=== PATIENT | female | born 1930 | race Caucasian/White ===

== ENCOUNTER 2016-12-14 10:30 | Inpatient (IN) | payer MEDICARE ==
[2016-12-14] MEDS ORDERED: SODIUM CHLORIDE 0.9% 1,000 ML IV STA (13:17)
[2016-12-14] MEDS ORDERED: SODIUM CHLORIDE 0.9% 500 ML IV STA ×2 (13:17→14:45)
[2016-12-14 14:08] LABS: Basophils # (A) 0.1 k/uL (0-0.2); Basophils % (A) 1 %; CH 27.3; CHCM 33.3; Eosinophils % (A) 0 %; HDW 2.96; Luc % (Auto) 3; Lymphocytes # (A) 1.2 k/uL (1.0-4.8); Lymphocytes % (A) 18 %; MCH 26.2 pg (25.0-35.0); MCHC 31.8 g/dL (31.0-37.0); MCV 82.3 fL (80.0-100.0); Mean Platelet Volume 7.2; Monocytes # (A) 0.4 k/uL (0-1.0); Monocytes % (A) 7 %; Neutrophils # (A) 4.6 k/uL (1.3-7.7); Neutrophils % (A) 72 %; RBC 4.98 m/uL (3.80-5.40); RDW 14.8 % (11.5-15.5); WBC 6.4 k/uL (3.8-10.6); WBC (Perox) 6.37
[2016-12-14 14:18] LABS: INR 1.1 (<1.1); Partial Thromboplastin Time 26.7 sec (22.0-30.0); Prothrombin Time 10.8 sec (9.0-12.0)
[2016-12-14 14:29] LABS: Calcium 9.6 mg/dL (8.4-10.2); Magnesium 2.4 mg/dL (1.6-2.3); Phosphorous 4.9 mg/dL (2.5-4.5); Total Bilirubin 0.4 mg/dL (0.2-1.3); Total Protein 7.9 g/dL (6.3-8.2)
[2016-12-14 14:33] LABS: Creatine Kinase <20 U/L (30-135)
--- NOTE | 2016-12-14 14:35 | ED ---
General Adult HPI - General Chief complaint: Recheck/Abnormal Lab/Rx Stated complaint: abn labs Time Seen by Provider: 12/14/16 13:04 Source: patient Mode of arrival: ambulatory Limitations: no limitations - History of Present Illness Initial comments: This 86-year-old white female presents with a complaint of not feeling well. This apparently has been going on for approximately one week. She's had significant decrease food and fluid intake. She's been weak to the point that she cannot any further ambulate but was able to ambulate previously. She's had increased sleep. She barely has a long history of urinary tract infections. She had a urine and blood work done this past and results were relayed to daughter today and it appears that she has a urinary tract infection with results showing E. coli. Her potassium was also elevated at 5.9. The daughter denies any known fever. The patient lives in a semi-independent living facility. She apparently has people checking on her regularly. She has advanced dementia and is unable to give any relevant history herself. All history is obtained per daughter. No other complaints or modifying factors. Daughter relates that she's had multiple previous similar incidents related to urinary infections. - Related Data Home Medications Medication Instructions Recorded Confirmed Citalopram Hydrobromide [CeleXA] 20 mg PO DAILY@0700 09/09/15 12/14/16 Diltiazem HCl [Diltiazem 24Hr ER] 120 mg PO DAILY@0700 03/04/16 12/14/16 L.acidoph,Paracasei, B.lactis 1 tab PO DAILY@0700 04/23/16 12/14/16 [Probiotic] Donepezil [Aricept] 5 mg PO DAILY@0700 06/04/16 12/14/16 Ezetimibe [Zetia] 10 mg PO DAILY@0700 06/04/16 12/14/16 Aspirin EC [Ecotrin Low Dose] 81 mg PO Q48H 12/14/16 12/14/16 Potassium Chloride [K-Tab ER] 5 meq PO SUTUTHFR 12/14/16 12/14/16 Simvastatin [Zocor] 10 mg PO DAILY 12/14/16 12/14/16 Allergies Allergy/AdvReac Type Severity Reaction Status Date / Time ciprofloxacin [From Cipro] Allergy Nausea & Verified 12/14/16 13:29 Vomiting & Diarrhea ciprofloxacin HCl Allergy Nausea & Verified 12/14/16 13:29 [From Cipro] Vomiting & Diarrhea mold Allergy Unknown Verified 12/14/16 13:29 nitrofurantoin Allergy Nausea & Verified 12/14/16 13:29 [From Macrobid] Vomiting & Diarrhea nitrofurantoin Allergy Nausea & Verified 12/14/16 13:29 macrocrystalline Vomiting & [From Macrobid] Diarrhea Penicillins Allergy Rash/Hives, Verified 12/14/16 13:29 diarrhea sulfamethoxazole Allergy Nausea & Verified 12/14/16 13:29 [From Bactrim] Vomiting & Diarrhea tamsulosin HCl [From Flomax] Allergy dizziness,v Verified 12/14/16 13:29 omiting trimethoprim [From Bactrim] Allergy Nausea & Verified 12/14/16 13:29 Vomiting & Diarrhea chocolate flavor AdvReac Diarrhea Verified 12/14/16 13:29 midazolam HCl [From Versed] AdvReac paranoid,combative,severe Verified 13:29 confusion,hallucinations Review of Systems ROS Statement: Those systems with pertinent positive or pertinent negative responses have been documented in the HPI. ROS Other: All systems not noted in ROS Statement are negative. Past Medical History Past Medical History: Atrial Fibrillation, Asthma, Dementia, Eye Disorder, GERD/ Reflux, Hyperlipidemia, Hypertension, Renal Disease Additional Past Medical History / Comment(s): URINARY BLEEDING SINCE URETER STENT PLACEMENT-bates catheter which pt pulled out ,DAUGHTER STATES, nephrolithiasis, hydronephrosis, renal insufficiency, bladder cancer 30 yrs ago with removal and BCG instilled, urinary retention, "ABLE TO SIGN OWN CONSENTS BUT HAS TROUBLE WITH STM LOSS", Hx of ARRYTHMIA but not recently, DAUGHTER STATED PT HAS CHRONIC DIARRHEA-"NOT NEW FOR PT", falls, bilateral glaucoma, hx of sepsis History of Any Multi-Drug Resistant Organisms: None Reported Additional Past Surgical History / Comment(s): LOOP MONITOR LT CHEST,RT URETER STENT PLACEMENT q 6mos x 30 yrs-last placement 04-14-16 [facility] ,RT NEPHROLITHOTOMY,CANCEROUS BLADDER TUMOR REMOVED with BCG instilled, 04-24-16 cystoscopy Additional Past Anesthesia/Blood Transfusion Reaction / Comment(s): INCREASED CONFUSION WITH ANESTHESIA AND WITH VERSED INCREASED PARANOID,HALLUCINATIONS, COMBATIVE,DTR HAS HX PONV. NO HX BLOOD TRANSFUSION Type of Cardiac Device: Loop Device Placement Date:: 2011? Past Psychological History: No Psychological Hx Reported Additional Psychological History / Comment(s): PT LIVES AT ON LICENSE OF [facility], HAS [facility] CARE. DAUGHTER FILLS PTS MED CONTAINERS .PT USES A WHEELED WALKER.HX FALLS.ABLE TO FEED SELF BUT NEEDS SOMEONE TO SIT WITH HER AND ENCOURAGE HER TO EAT. Will pull out bates catheter if able to reach. Smoking Status: Never smoker Past Alcohol Use History: None Reported Past Drug Use History: None Reported - Past Family History Mother Family Medical History: Cancer Additional Family Medical History / Comment(s): PANCREATIC CA Father Family Medical History: CVA/TIA Additional Family Medical History / Comment(s): MULT CVA'S General Exam - General Exam Comments Initial Comments: GENERAL: The patient is well nourished and well hydrated. VITAL SIGNS: Heart rate, blood pressure, respiratory rate reviewed as recorded in nurse's notes. EYES: Pupils are round and reactive. Extraocular movements are intact. No conjunctival / lid redness or swelling. ENT: No external evidence of injury, swelling, or ecchymosis. Airway is patent. Throat is clear. NECK: Nontender. No swelling or evidence of injury. No subcutaneous emphysema. Trachea is midline. No thyroid mass. HEART: Regular rate and rhythm. Good peripheral pulses. LUNGS/CHEST: Breath sounds clear and equal bilaterally. No rales, rhonchi, or wheezes. No ecchymosis, subcutaneous emphysema, or tenderness. ABDOMEN: Abdomen soft without tenderness. No palpable masses or organomegaly. No peritoneal signs. No abdominal wall swelling or ecchymosis. EXTREMITIES: No extremity tenderness. Normal muscle tone and function. No thoracolumbar tenderness. NEUROLOGIC: Sensation is grossly intact. Cranial nerve exam reveals face is symmetrical, tongue is midline, speech is clear. SKIN: No abrasions or ecchymosis is noted. No induration or masses noted. PSYCHIATRIC: Alert and conversive, documented. Limitations: no limitations Course Vital Signs 12/14/16 12/14/16 11:23 14:16 Temperature 97.6 F 98.1 F Pulse Rate 86 72 Respiratory 16 16 Rate Blood Pressure 123/60 110/68 O2 Sat by Pulse 98 97 Oximetry Medical Decision Making - Medical Decision Making The patient was seen and examined. All diagnostics were reviewed. The EKG was done and shows a normal sinus rhythm at a rate of 77. There is no acute ST-T wave changes identified. There is a left axis deviation. The AK interval is 198, QRS duration is 104, and QTC intervals 416. An IV is started and she is hydrated. IV Rocephin also was given. The potassium is significantly elevated at 6.7, creatinine is elevated at 3.09, the urine is elevated at 61, glucose is elevated 152, and the CO2 is low at 15. She does have evidence of a urinary tract infection. Is felt as though she became dehydrated due to lack of eating and drinking and this likely caused her renal failure as well as hyperkalemia. It is felt as though she would require further treatment for the hyperkalemia and is given Kayexalate, IV bicarbonate, IV insulin, and IV glucose. It is felt as though she would require admission to the hospital for continued treatment. The case is discussed with Dr. Patel and he is agreeable to admission. Patient and family are updated and are agreeable. - Lab Data Result diagrams: 12/14/16 13:15 12/14/16 13:15 Lab Results 12/14/16 12/14/16 12/14/16 Range/Units 13:15 13:15 13:15 WBC 6.4 (3.8-10.6) k/uL RBC 4.98 (3.80-5.40) m/uL Hgb 13.0 (11.4-16.0) gm/dL Hct 41.0 (34.0-46.0) % MCV 82.3 (80.0-100.0) fL MCH 26.2 (25.0-35.0) pg MCHC 31.8 (31.0-37.0) g/dL RDW 14.8 (11.5-15.5) % Plt Count 440 (150-450) k/uL Neutrophils % 72 % Lymphocytes % 18 % Monocytes % 7 % Eosinophils % 0 % Basophils % 1 % Neutrophils # 4.6 (1.3-7.7) k/uL Lymphocytes # 1.2 (1.0-4.8) k/uL Monocytes # 0.4 (0-1.0) k/uL Eosinophils # 0.0 (0-0.7) k/uL Basophils # 0.1 (0-0.2) k/uL PT (9.0-12.0) sec INR (<1.1) APTT (22.0-30.0) sec Sodium 135 L (137-145) mmol/L Potassium 6.7 H* (3.5-5.1) mmol/L Chloride 103 (98-107) mmol/L Carbon Dioxide 15 L (22-30) mmol/L Anion Gap 17 mmol/L BUN 61 H (7-17) mg/dL Creatinine 3.09 H (0.52-1.04) mg/dL Est GFR (MDRD) Af Amer 17 (>60 ml/min/1.73 sqM) Est GFR (MDRD) Non-Af 14 (>60 ml/min/1.73 sqM) Glucose 152 H (74-99) mg/dL Plasma Lactic Acid Jaxson (0.7-2.0) mmol/L Calcium 9.6 (8.4-10.2) mg/dL Phosphorus 4.9 H (2.5-4.5) mg/dL Magnesium 2.4 H (1.6-2.3) mg/dL Total Bilirubin 0.4 (0.2-1.3) mg/dL AST 13 L (14-36) U/L ALT 18 (9-52) U/L Alkaline Phosphatase 157 H (38-126) U/L Total Creatine Kinase <20 L (30-135) U/L CK-MB (CK-2) 0.5 (0.0-2.4) ng/mL CK-MB (CK-2) Rel Index 0.0 Troponin I <0.012 (0.000-0.034) ng/mL Total Protein 7.9 (6.3-8.2) g/dL Albumin 3.9 (3.5-5.0) g/dL TSH 0.765 (0.465-4.680) mIU/L Urine Color Urine Appearance (Clear) Urine pH (5.0-8.0) Ur Specific Leroy (1.001-1.035) Urine Protein (Negative) Urine Glucose (UA) (Negative) Urine Ketones (Negative) Urine Blood (Negative) Urine Nitrate (Negative) Urine Bilirubin (Negative) Urine Urobilinogen (<2.0) mg/dL Ur Leukocyte Esterase (Negative) Urine RBC (0-5) /hpf Urine WBC (0-5) /hpf Urine Bacteria (None) /hpf 12/14/16 12/14/16 12/14/16 Range/Units 13:15 13:15 13:45 WBC (3.8-10.6) k/uL RBC (3.80-5.40) m/uL Hgb (11.4-16.0) gm/dL Hct (34.0-46.0) % MCV (80.0-100.0) fL MCH (25.0-35.0) pg MCHC (31.0-37.0) g/dL RDW (11.5-15.5) % Plt Count (150-450) k/uL Neutrophils % % Lymphocytes % % Monocytes % % Eosinophils % % Basophils % % Neutrophils # (1.3-7.7) k/uL Lymphocytes # (1.0-4.8) k/uL Monocytes # (0-1.0) k/uL Eosinophils # (0-0.7) k/uL Basophils # (0-0.2) k/uL PT 10.8 (9.0-12.0) sec INR 1.1 (<1.1) APTT 26.7 (22.0-30.0) sec Sodium (137-145) mmol/L Potassium (3.5-5.1) mmol/L Chloride (98-107) mmol/L Carbon Dioxide (22-30) mmol/L Anion Gap mmol/L BUN (7-17) mg/dL Creatinine (0.52-1.04) mg/dL Est GFR (MDRD) Af Amer (>60 ml/min/1.73 sqM) Est GFR (MDRD) Non-Af (>60 ml/min/1.73 sqM) Glucose (74-99) mg/dL Plasma Lactic Acid Jaxson 1.7 (0.7-2.0) mmol/L Calcium (8.4-10.2) mg/dL Phosphorus (2.5-4.5) mg/dL Magnesium (1.6-2.3) mg/dL Total Bilirubin (0.2-1.3) mg/dL AST (14-36) U/L ALT (9-52) U/L Alkaline Phosphatase (38-126) U/L Total Creatine Kinase (30-135) U/L CK-MB (CK-2) (0.0-2.4) ng/mL CK-MB (CK-2) Rel Index Troponin I (0.000-0.034) ng/mL Total Protein (6.3-8.2) g/dL Albumin (3.5-5.0) g/dL TSH (0.465-4.680) mIU/L Urine Color Yellow Urine Appearance Turbid H (Clear) Urine pH 6.0 (5.0-8.0) Ur Specific Leroy 1.011 (1.001-1.035) Urine Protein 2+ H (Negative) Urine Glucose (UA) Negative (Negative) Urine Ketones Negative (Negative) Urine Blood Moderate H (Negative) Urine Nitrate Negative (Negative) Urine Bilirubin Negative (Negative) Urine Urobilinogen <2.0 (<2.0) mg/dL Ur Leukocyte Esterase Large H (Negative) Urine RBC (0-5) /hpf Urine WBC (0-5) /hpf Urine Bacteria Few H (None) /hpf Disposition Clinical Impression: UTI (urinary tract infection), Acute kidney injury, Hyperkalemia, Hyperglycemia , Dehydration, Dementia Disposition: ADMITTED IP TO THIS [facility] Condition: Fair Time of Disposition: 15:13 Decision Date: 12/14/16 Decision Time: 15:13
[2016-12-14 14:37] LABS: Appearance,Urine Turbid (Clear); Bilirubin,Urine Negative (Negative); Glucose,Urine (UA) Negative (Negative); Ketones,Urine Negative (Negative); Leukocyte Esterase,Urine Large (Negative); Nitrite,Urine Negative (Negative); Protein,Urine 2+ (Negative); UA Billing (MACRO vs. MICRO) MICRO; Urobilinogen,Urine <2.0 mg/dL (<2.0)
[2016-12-14 14:38] LABS: Specific Gravity,Urine 1.011 (1.001-1.035)
[2016-12-14 14:41] LABS: Potassium 6.7 mmol/L (3.5-5.1)
[2016-12-14 14:44] LABS: Creatine Kinase MB 0.5 ng/mL (0.0-2.4); Troponin I <0.012 ng/mL (0.000-0.034)
[2016-12-14] MEDS ORDERED: SODIUM POLYSTYRENE SULFONATE 15 GM/60 ML BOTTLE PO ONE (14:46)
[2016-12-14] MEDS ORDERED: DEXTROSE 50%-WATER 50 ML SYRINGE IVP ONE (14:46)
[2016-12-14] MEDS ORDERED: INSULIN REGULAR 100 UNIT/ML VIAL IV ONE (14:46)
[2016-12-14] MEDS ORDERED: SODIUM BICARB 8.4% 50 ML SYR (1 MEQ/ML) IV ONE (14:46)
[2016-12-14 14:51] LABS: Bacteria,Urine Few /hpf
[2016-12-14] MEDS ORDERED: NALOXONE 0.4 MG/ML 1 ML VIAL IV PRN (15:16)
[2016-12-14] MEDS ORDERED: ONDANSETRON 4 MG/2 ML VIAL IVP PRN (15:16)
[2016-12-14] MEDS ORDERED: ACETAMINOPHEN TAB 325 MG TAB PO PRN (15:16)
[2016-12-14] MEDS: MELATONIN 3 MG TABLET PO SCH (20:32)
[2016-12-14] MEDS: HEPARIN SODIUM,PORCINE 5,000 UNIT/ML 1 ML VIAL SQ SCH (20:32)
[2016-12-14 20:50] LABS: Glucose,Whole Blood 103 mg/dL (75-99)
[2016-12-15 06:20] LABS: Basophils % (A) 0 %; CHCM 32.7; Eosinophils % (A) 0 %; HCT 30.8 % (34.0-46.0); Luc # (Auto) 0.23; Luc % (Auto) 4; Lymphocytes # (A) 1.4 k/uL (1.0-4.8); Lymphocytes % (A) 25 %; MCH 26.9 pg (25.0-35.0); MCHC 32.5 g/dL (31.0-37.0); MCV 82.7 fL (80.0-100.0); Mean Platelet Volume 6.6; Monocytes # (A) 0.3 k/uL (0-1.0); Monocytes % (A) 6 %; Neutrophils # (A) 3.6 k/uL (1.3-7.7); Neutrophils % (A) 64 %; RBC 3.73 m/uL (3.80-5.40); RDW 14.9 % (11.5-15.5); WBC 5.6 k/uL (3.8-10.6)
[2016-12-15 06:32] LABS: Potassium 3.7 mmol/L (3.5-5.1)
[2016-12-15] MEDS: DILTIAZEM CD 120 MG CAP.ER.24H PO SCH (06:54)
[2016-12-15] MEDS: DONEPEZIL 5 MG TAB PO SCH (06:54)
[2016-12-15] MEDS: EZETIMIBE 10 MG TAB PO SCH (06:54)
[2016-12-15] MEDS: CITALOPRAM HYDROBROMIDE 20 MG TAB PO SCH (06:54)
[2016-12-15] MEDS: LACTOBACILLUS ACIDOPH & BULGAR 1 EACH PACKET PO SCH (06:54)
--- NOTE | 2016-12-15 08:28 | HP ---
DATE OF ADMISSION: CHIEF COMPLAINT: Not feeling well. HISTORY OF PRESENT ILLNESS: This 86-year-old woman with a past medical history of multiple medical problems including atrial fibrillation, asthma, dementia, history of hypertension, hyperlipidemia, history of urinary retention being followed by Dr. Xie is living [facility]. The patient is noted to have significant diminished intake p.o. food and fluid intake. The patient had problems over the weekend. Because of increasing concerns, the patient was taken to [facility] and admitted for further evaluation and treatment. Patient was noted to have UTI recently E. Coli. The potassium is also elevated at 5.9 and previously on admission, the creatinine was 3.09 and patient is dehydrated. Potassium is elevated to 6.7. The patient received regimen and the repeat potassium was 4.4. Patient is being closely monitored in selective telemetry unit at this time. The patient is noncommunicative and unable to give current history. Most of the history is taken from my discussion with staff and review of the chart and as well as discussion with the ER. Physician. PAST MEDICAL HISTORY: History of dementia, history of atrial fibrillation, asthma, history of hypertension, hyperlipidemia, history of renal disease, history of urinary bleeding and ureteral stent placement. Medications prior to admission include home medications: 1. Zocor 10 mg p.o. daily. 2. K-Tab 5 mEq p.o. daily. 3. Probiotic 1 tablet p.o. daily. 4. Lactobacillus, Probiotic, 1 tablet p.o. daily. 5. Zetia 10 mg p.o. daily. 6. Aricept 5 mg p.o. daily. 7. Diltiazem 24, 120 mg p.o. daily. 8. Celexa 20 mg p.o. daily. 9. Ecotrin 81 mg q.48 hours. Allergies are CIPROFLOXACIN, MOLD, NITROFURANTOIN, PENICILLIN, SULFAMETHOXAZOLE, FLOMAX, BACTRIM, CHOCOLATE FAVOR, MIDAZOLAM. FAMILY HISTORY, SOCIAL HISTORY, REVIEW OF SYSTEMS: Could not be taken because of change in mental status and no history of smoking per chart. PHYSICAL EXAM: Patient is conscious, confused. Pulse 75, blood pressure 119/61, respirations 18, temperature 98.1, pulse ox 99% on room air. HEENT: Conjunctivae normal. Oral mucosa is dry. NECK: No jugular venous distention. No carotid bruit. The veins are collapsed. CARDIOVASCULAR: S1 and S2, muffled. No S3, no S4. RESPIRATORY: Breath sounds diminished at the bases. A few scattered rhonchi. No crackles. ABDOMEN: Soft, nontender. No mass palpable. LEGS: No edema, no swelling. NERVOUS SYSTEM: Higher function as mentioned earlier. Moves all 4 limbs. Mild diffuse weakness. LYMPHATICS: No lymphadenopathy of neck, axillae or groin. SKIN: No ulcer, rashes or bleeding. JOINTS: No active deforming arthropathy. LABS: CBC within normal limits. Sodium 135, potassium 6.7. Creatinine is 3.09. Magnesium is 2.4. AST, ALT noted. UA noted. ASSESSMENT: 1. Urinary tract infection with possible sepsis, present on admission. 2. Change in mental status, metabolic encephalopathy acute on chronic. 3. Acute renal failure, possible prerenal with acute tubular necrosis. 4. Hyperkalemia secondary to acute renal failure. 5. Hyponatremia. 6. Body mass index 18.7 indicating moderate to severe protein calorie malnutrition. 7. History of dementia. 8. History of atrial fibrillation. 9. History of asthma. 10. History of hypertension. 11. Hyperlipidemia. 12. History of renal disease. 13. History of ureteral bleeding from ureteric stent placement. 14. History of nephrolithiasis. 15. History of hydronephrosis. 16. History of bladder cancer. 17. History of urinary retention. 18. History of chronic diarrhea. 19. History of bilateral glaucoma. 20. Gait dysfunction. 21. NO CODE, NO CPR, NO VENT. RECOMMENDATIONS AND DISCUSSION: This 86-year-old woman who presented with multiple complex medical issues, will monitor the patient closely. Continue the current medications. Continue symptomatic treatment. I would recommend to continue with IV antibiotics. Cautious IV hydration. Repeat labs. Dr. Summers will be consulted. PT, OT evaluation. Land Developer to evaluate for home situation. Otherwise, supplement vitamin C. Orders for further details. Encourage p.o. food and fluids and increase ambulation. Repeat electrolytes. The prognosis is guarded because of multiple complex medical issues. Further recommendations to follow. A copy needs to be forwarded to Dr. iXe who is the primary physician. [facility]
[2016-12-15] MEDS ORDERED: ENOXAPARIN 40 MG/0.4 ML SYRINGE SQ SCH (09:00)
[2016-12-15] MEDS: HEPARIN SODIUM,PORCINE 5,000 UNIT/ML 1 ML VIAL SQ SCH ×2 (09:10→19:46)
[2016-12-15] MEDS: ATORVASTATIN 10 MG TAB PO SCH (09:10)
[2016-12-15] MEDS: PANTOPRAZOLE 40 MG/10 ML VIAL IV SCH (09:34)
--- NOTE | 2016-12-15 10:06 | P.CNPUL ---
History of Present Illness Consult date: 12/15/16 Reason for consult: other Chief complaint: Abnormal labs History of present illness: This an 86-year-old female who presents to the emergency department complaining of "" not feeling well. She apparently not been feeling well for about a week prior to admission and had significant decrease in both food and fluid intake. She is so weak she cannot ambulate. Apparently spending much more time in bed. She apparently has a history of urinary tract infections and apparently recently had a urinalysis which suggested E. coli bladder infection. She was also found to be hyperkalemic. There was no fever or chills. No nausea vomiting or diarrhea. The patient does have advanced dementia and not able get much of a history. Most of the history is obtained from the ER alfonso was history and information was obtained from the patient's daughter. Medical history is positive for atrial fibrillation asthma dementia GERD hyperlipidemia hypertension chronic kidney disease kidney stones as well as as well as a host of other major medical problems. Please see the medical history and surgical history is provided by the ER physician. The patient appears to not have any pulmonary issues at this time. I suspect I was consulted because at one time the patient was possibly thought to be going to the intensive care unit. Review of Systems ROS unobtainable: due to mental status Past Medical History Past Medical History: Atrial Fibrillation, Asthma, Dementia, Eye Disorder, Hyperlipidemia, Hypertension, Renal Disease Additional Past Medical History / Comment(s): URINARY BLEEDING SINCE URETER STENT PLACEMENT, nephrolithiasis, hydronephrosis, renal insufficiency, bladder cancer 30 yrs ago with removal and BCG instilled, urinary retention, DAUGHTER STATED PT HAS CHRONIC DIARRHEA-"NOT NEW FOR PT", falls, bilateral glaucoma, hx of sepsis History of Any Multi-Drug Resistant Organisms: None Reported Additional Past Surgical History / Comment(s): LOOP MONITOR LT CHEST,RT URETER STENT PLACEMENT q 6mos x 30 yrs-last placement 04-14-16,RT NEPHROLITHOTOMY, CANCEROUS BLADDER TUMOR REMOVED with BCG instilled Additional Past Anesthesia/Blood Transfusion Reaction / Comment(s): INCREASED CONFUSION WITH ANESTHESIA. INCREASED PARANOID,HALLUCINATIONS,COMBATIVE, NO HX BLOOD TRANSFUSION Type of Cardiac Device: Loop Device Placement Date:: 2011? Past Psychological History: No Psychological Hx Reported Additional Psychological History / Comment(s): PT LIVES AT [facility], HAS HOME CARE. DAUGHTER FILLS PTS MED CONTAINERS .PT USES A WHEELED WALKER.HX FALLS.ABLE TO FEED SELF BUT NEEDS SOMEONE TO SIT WITH HER AND ENCOURAGE HER TO EAT. Smoking Status: Never smoker Past Alcohol Use History: None Reported Past Drug Use History: None Reported - Past Family History Mother Family Medical History: Cancer Additional Family Medical History / Comment(s): PANCREATIC CA Father Family Medical History: CVA/TIA Additional Family Medical History / Comment(s): MULT CVA'S Medications and Allergies Home Medications Medication Instructions Recorded Confirmed Type Citalopram Hydrobromide [CeleXA] 20 mg PO DAILY@0700 09/09/15 12/14/16 History Diltiazem HCl [Diltiazem 24Hr ER] 120 mg PO DAILY@0700 03/04/16 12/14/16 History L.acidoph,Paracasei, B.lactis 1 tab PO DAILY@0700 04/23/16 12/14/16 History [Probiotic] Donepezil [Aricept] 5 mg PO DAILY@0706/04/16 12/14/16 History Ezetimibe [Zetia] 10 mg PO DAILY@0700 06/04/16 12/14/16 History Aspirin EC [Ecotrin Low Dose] 81 mg PO Q48H 12/14/16 12/14/16 History Potassium Chloride [K-Tab ER] 5 meq PO SUTUTHFR 12/14/16 12/14/16 History Simvastatin [Zocor] 10 mg PO DAILY 12/14/16 12/14/16 History Allergies Allergy/AdvReac Type Severity Reaction Status Date / Time ciprofloxacin [From Cipro] Allergy Nausea & Verified 12/14/16 13:29 Vomiting & Diarrhea ciprofloxacin HCl Allergy Nausea & Verified 12/14/16 13:29 [From Cipro] Vomiting & Diarrhea mold Allergy Unknown Verified 12/14/16 13:29 nitrofurantoin Allergy Nausea & Verified 12/14/16 13:29 [From Macrobid] Vomiting & Diarrhea nitrofurantoin Allergy Nausea & Verified 12/14/16 13:29 macrocrystalline Vomiting & [From Macrobid] Diarrhea Penicillins Allergy Rash/Hives, Verified 12/14/16 13:29 diarrhea sulfamethoxazole Allergy Nausea & Verified 12/14/16 13:29 [From Bactrim] Vomiting & Diarrhea tamsulosin HCl [From Flomax] Allergy dizziness,v Verified 12/14/16 13:29 omiting trimethoprim [From Bactrim] Allergy Nausea & Verified 12/14/16 13:29 Vomiting & Diarrhea chocolate flavor AdvReac Diarrhea Verified 12/14/16 13:29 midazolam HCl [From Versed] AdvReac paranoid,combative,severe Verified 13:29 confusion,hallucinations Physical Exam Osteopathic Statement: *. No significant issues noted on an osteopathic structural exam other than those noted in the History and Physical/Consult. Vitals: Vital Signs Temp Pulse Pulse Pulse Resp BP BP 12/15/16 08:32 67 14 12/15/16 08:00 97.2 F L 67 14 133/72 12/15/16 04:00 97.4 F L 73 16 119/64 12/15/16 00:00 98.8 F 70 16 127/57 12/14/16 20:00 98.5 F 73 16 123/56 12/14/16 17:45 75 16 119/61 12/14/16 17:31 68 16 120/64 12/14/16 16:36 98.1 F 72 16 117/62 Pulse Ox 12/15/16 08:32 12/15/16 08:00 98 12/15/16 04:00 97 12/15/16 00:00 98 12/14/16 20:00 98 12/14/16 17:45 99 12/14/16 17:31 98 12/14/16 16:36 99 Intake and Output 12/14/16 12/15/16 12/15/16 22:59 06:59 14:59 Intake Total 360 Balance 360 Intake: Oral 360 Other: Voiding Method Diaper Diaper Diaper # Voids 0 Weight 51 kg 54 kg No acute distress, oriented to person only. HEENT examination is grossly unremarkable. Mixed membranes are moist. Supple. Full range of motion. No neck vein distention. No adenopathy or thyromegaly. Cardiovascular examination reveals regular rhythm rate. Heart sounds are distant. Lungs are relatively clear breath sounds equal. Abdomen soft. Extremities are intact. Results - Laboratory Findings CBC and BMP: 12/15/16 06:00 12/15/16 06:00 PT/INR, D-dimer PT 10.8 sec (9.0-12.0) 12/14/16 13:15 INR 1.1 (<1.1) 12/14/16 13:15 Abnormal lab findings: Abnormal Labs 12/14/16 12/15/16 12/15/16 20:49 06:00 06:00 RBC 3.73 L Hgb 10.0 L D Hct 30.8 L Chloride 113 H Carbon Dioxide 16 L BUN 48 H Creatinine 2.20 H Glucose 111 H POC Glucose (mg/dL) 103 H Calcium 8.0 L - Diagnostic Findings Chest x-ray: image reviewed Assessment and Plan (1) Acute kidney injury Status: Acute (2) Dementia Status: Acute (3) Hyperkalemia Status: Acute (4) UTI (urinary tract infection) Status: Acute (5) Altered mental status Status: Acute (6) UTI (urinary tract infection) Status: Acute Plan: Plan The patient currently has no active pulmonary issues. We'll see as needed. No additional recommendations are made at this time. Current treatment as appropriate. Time with Patient: Greater than 30
[2016-12-15] MEDS: THIAMINE 100 MG TAB PO SCH (11:12)
[2016-12-15] MEDS: MULTIVITAMINS, THERA 1 EACH TAB PO SCH (11:12)
[2016-12-15] MEDS: FOLIC ACID 1 MG TAB PO SCH (11:12)
--- NOTE | 2016-12-15 19:37 | PN ---
DATE OF SERVICE: 12/15/2016 This 86-year-old woman was admitted with acute renal failure, also has UTI with sepsis. Patient had change in mental status. Patient had diminished oral intake. No fever. No cough. On exam, patient is conscious, confused. Pulse 67, blood pressure 133/72, respirations 14, temperature 97.4, pulse ox 90% on room air. HEENT: Conjunctivae normal. NECK: No jugular venous distention. CARDIOVASCULAR: S1 and S2, muffled. RESPIRATORY: Breath sounds diminished at the bases. Scattered rhonchi and crackles. ABDOMEN: Soft, nontender. LEGS: No edema, no swelling. NERVOUS SYSTEM: No focal deficits. LABS: Hemoglobin 10, sodium 134, potassium 3.7, creatinine is 2.20. UA noted. Cultures are negative. ASSESSMENT: 1. Urinary tract infection with possible sepsis, present on admission. 2. Change in mental status, metabolic encephalopathy, acute on chronic. 3. Acute renal failure, possible prerenal, with acute tubular necrosis. 4. Hyperkalemia secondary to acute renal failure. 5. Hyponatremia. 6. Body mass index 18.7 indicating moderate to severe protein calorie malnutrition. 7. History of dementia. 8. History of atrial fibrillations. 9. History of asthma. 10. History of hypertension. 11. History of hyperlipidemia. 12. History of renal disease. 13. History of ureteral bleeding from ureteric stent placement. 14. History of nephrolithiasis. 15. History of hydronephrosis. 16. History of bladder cancer. 17. History of urinary retention. 18. History of chronic diarrhea. 19. History of bilateral glaucoma. 20. Gait dysfunction. 21. NO CODE, NO CPR, NO VENT. RECOMMENDATIONS AND DISCUSSION: This 86-year-old woman who presented with multiple complex medical issues, we will monitor the patient closely. Continue the current medications. Continue with antibiotics. Continue with IV fluids. Repeat labs. Guarded prognosis because of multiple complex medical issues. Further recommendations to follow.
[2016-12-15] MEDS: MELATONIN 3 MG TABLET PO SCH (19:46)
[2016-12-16] MEDS: ASPIRIN 81 MG CHEW PO SCH (06:13)
[2016-12-16] MEDS: CITALOPRAM HYDROBROMIDE 20 MG TAB PO SCH (06:13)
[2016-12-16] MEDS: EZETIMIBE 10 MG TAB PO SCH (06:14)
[2016-12-16] MEDS: DONEPEZIL 5 MG TAB PO SCH (06:14)
[2016-12-16] MEDS: DILTIAZEM CD 120 MG CAP.ER.24H PO SCH (06:14)
[2016-12-16] MEDS: LACTOBACILLUS ACIDOPH & BULGAR 1 EACH PACKET PO SCH (06:14)
[2016-12-16 06:27] LABS: Basophils % (A) 0 %; CH 26.9; CHCM 32.2; Eosinophils # (A) 0.1 k/uL (0-0.7); Eosinophils % (A) 1 %; HCT 31.7 % (34.0-46.0); HDW 2.97; HGB 10.1 gm/dL (11.4-16.0); Hypochromasia Slight; Luc % (Auto) 4; Lymphocytes # (A) 1.1 k/uL (1.0-4.8); Lymphocytes % (A) 19 %; MCH 26.8 pg (25.0-35.0); MCV 83.9 fL (80.0-100.0); Mean Platelet Volume 6.3; Monocytes # (A) 0.4 k/uL (0-1.0); Monocytes % (A) 6 %; Neutrophils # (A) 4.1 k/uL (1.3-7.7); Neutrophils % (A) 70 %; RBC 3.78 m/uL (3.80-5.40); RDW 14.8 % (11.5-15.5); WBC 5.8 k/uL (3.8-10.6); WBC (Perox) 6.01
[2016-12-16 06:39] LABS: Potassium 3.4 mmol/L (3.5-5.1)
[2016-12-16] MEDS: PANTOPRAZOLE 40 MG/10 ML VIAL IV SCH (07:57)
[2016-12-16] MEDS: HEPARIN SODIUM,PORCINE 5,000 UNIT/ML 1 ML VIAL SQ SCH ×2 (07:57→20:55)
[2016-12-16] MEDS: ATORVASTATIN 10 MG TAB PO SCH (07:57)
[2016-12-16] MEDS: FOLIC ACID 1 MG TAB PO SCH (12:06)
[2016-12-16] MEDS: MULTIVITAMINS, THERA 1 EACH TAB PO SCH (12:06)
[2016-12-16] MEDS: THIAMINE 100 MG TAB PO SCH (12:06)
[2016-12-16 13:19] VITALS: BMI 20.1
[2016-12-16] MEDS: SODIUM BICARBONATE TAB 650 MG TAB PO SCH ×2 (17:35→20:55)
--- NOTE | 2016-12-16 18:10 | P.PN ---
Subjective 86-year-old female with the advanced dementia currently a resident of [facility] comes in the hospital with change in mental status. Patient was noted to have an acute kidney injury which is attribute it to be prerenal in etiology. Patient apparently had poor intake take prior to admission. Patient was given IV hydration there was some suspicion for urinary tract infection as patient has a left-sided stent placed for previous hydronephrosis done by Dr. Oreilly in the past. Patient was started on IV antibiotics Patient is significant improvement is able to answer questions patient's daughter is at bedside. States that she is back to her baseline. No other new overnight events are reported. Objective - Vital Signs Vital signs: Vital Signs Temp 97.1 F L 12/16/16 16:00 Pulse 69 12/16/16 16:00 Resp 16 12/16/16 16:00 BP 114/59 12/16/16 16:00 Pulse Ox 97 12/16/16 16:00 Intake & Output 12/15/16 12/16/16 12/16/16 18:59 06:59 18:59 Intake Total 540 50 715 Balance 540 50 715 Weight 55 kg 55 kg Intake: IV 50 cefTRIAXone 1,000 mg In 50 Sodium Chloride 0.9% 50 ml @ 100 mls/hr IVPB Q24H [facility] Rx#:[id number] Oral 540 715 Other: Voiding Method Diaper Diaper Diaper # Voids 1 1 1 # Bowel Movements 0 1 - Exam In appearance in no distress answers questions appropriately Lungs currently clear to auscultation Heart regular rate and rhythm S1-S2 heard no murmurs appreciated Abdomen is soft nontender organomegaly no suprapubic tenderness noted Neurologically moves all 4 extremities Lower extremity is no edema appreciated - Labs CBC & Chem 7: 12/16/16 05:44 12/16/16 05:44 Labs: Abnormal Lab Results - Last 24 Hours (Table) 12/16/16 12/16/16 Range/Units 05:44 05:44 RBC 3.78 L (3.80-5.40) m/uL Hgb 10.1 L (11.4-16.0) gm/dL Hct 31.7 L (34.0-46.0) % Potassium 3.4 L (3.5-5.1) mmol/L Chloride 109 H (98-107) mmol/L Carbon Dioxide 15 L (22-30) mmol/L BUN 36 H (7-17) mg/dL Creatinine 1.86 H (0.52-1.04) mg/dL Calcium 8.0 L (8.4-10.2) mg/dL Microbiology - Last 24 Hours (Table) 12/14/16 19:29 Blood Culture - Preliminary Blood No Growth after 24 hours Assessment and Plan Plan: #1 acute metabolic encephalopathy #2 acute kidney injury secondary to prerenal in etiology likely secondary from poor oral intake #3 non-anion gap metabolic acidosis secondary to #2 #4 dementia #5 urinary tract infection #6 history of hypertension #7 left-sided ureteral stent #8 sinus dysrhythmia Plan Patient be started on sodium bicarb 650 mg 3 times a day. Patient renal function is improving continue ongoing care for another 24 hours. Will likely be able to discharge the patient back to her facility tomorrow. Will have physical therapy work with the patient tomorrow in a.m.
[2016-12-16] MEDS: MELATONIN 3 MG TABLET PO SCH (20:55)
[2016-12-17] MEDS: CITALOPRAM HYDROBROMIDE 20 MG TAB PO SCH (06:31)
[2016-12-17] MEDS: EZETIMIBE 10 MG TAB PO SCH (06:31)
[2016-12-17] MEDS: LACTOBACILLUS ACIDOPH & BULGAR 1 EACH PACKET PO SCH (06:31)
[2016-12-17] MEDS: DILTIAZEM CD 120 MG CAP.ER.24H PO SCH (06:32)
[2016-12-17] MEDS: DONEPEZIL 5 MG TAB PO SCH (06:32)
[2016-12-17] MEDS: PANTOPRAZOLE 40 MG/10 ML VIAL IV SCH (08:12)
[2016-12-17] MEDS: HEPARIN SODIUM,PORCINE 5,000 UNIT/ML 1 ML VIAL SQ SCH ×2 (08:12→20:15)
[2016-12-17] MEDS: ATORVASTATIN 10 MG TAB PO SCH (08:13)
[2016-12-17] MEDS: SODIUM BICARBONATE TAB 650 MG TAB PO SCH ×3 (08:13→22:14)
[2016-12-17] MEDS ORDERED: DILTIAZEM CD 120 MG CAP.ER.24H PO STA (08:23)
[2016-12-17] MEDS ORDERED: DILTIAZEM 5 MG/ML 5 ML VIAL IVP STA (08:23)
[2016-12-17 09:39] LABS: Basophils % (A) 0 %; CH 26.1; Eosinophils # (A) 0.1 k/uL (0-0.7); Eosinophils % (A) 1 %; HCT 33.2 % (34.0-46.0); HDW 2.95; HGB 9.9 gm/dL (11.4-16.0); Hypochromasia Marked; Luc # (Auto) 0.22; Luc % (Auto) 4; Lymphocytes # (A) 1.4 k/uL (1.0-4.8); Lymphocytes % (A) 24 %; MCHC 29.9 g/dL (31.0-37.0); Mean Platelet Volume 7.9; Monocytes # (A) 0.5 k/uL (0-1.0); Monocytes % (A) 9 %; Neutrophils # (A) 3.7 k/uL (1.3-7.7); Neutrophils % (A) 62 %; RBC 3.68 m/uL (3.80-5.40); RDW 14.7 % (11.5-15.5); WBC 5.9 k/uL (3.8-10.6); WBC (Perox) 6.27
[2016-12-17 09:59] LABS: Manual Review Performed
[2016-12-17 10:17] LABS: Calcium 8.3 mg/dL (8.4-10.2); Potassium 3.5 mmol/L (3.5-5.1); Total Bilirubin 0.3 mg/dL (0.2-1.3); Total Protein 5.8 g/dL (6.3-8.2)
[2016-12-17] MEDS: THIAMINE 100 MG TAB PO SCH (11:29)
[2016-12-17] MEDS: FOLIC ACID 1 MG TAB PO SCH (11:29)
[2016-12-17] MEDS: MULTIVITAMINS, THERA 1 EACH TAB PO SCH (11:29)
[2016-12-17] MEDS ORDERED: DILTIAZEM ORAL 30 MG TAB PO STA (11:59)
[2016-12-17] MEDS ORDERED: SODIUM CHLORIDE 0.9% 1,000 ML IV ONE (12:35)
[2016-12-17] MEDS: SODIUM CHLORIDE 0.9% 1,000 ML IV SCH ×3 (12:35→18:28)
[2016-12-17 15:36] LABS: MCV 90.2 fL (80.0-100.0)
--- NOTE | 2016-12-17 17:46 | P.PN ---
Subjective 86-year-old female with the advanced dementia currently a resident of [facility] comes in the hospital with change in mental status. Patient was noted to have an acute kidney injury which is attribute it to be prerenal in etiology. Patient apparently had poor intake take prior to admission. Patient was given IV hydration there was some suspicion for urinary tract infection as patient has a left-sided stent placed for previous hydronephrosis done by Dr. Oreilly in the past. Patient was started on IV antibiotics Patient is significant improvement is able to answer questions patient's daughter is at bedside. States that she is back to her baseline. No other new overnight events are reported. 12/17/16 Denies having any new complaints. Pt was having episodes of a fib with rvr. Objective - Vital Signs Vital signs: Vital Signs Temp 97.2 F L 12/17/16 12:00 Pulse 90 12/17/16 12:00 Resp 16 12/17/16 12:00 BP 101/55 12/17/16 12:00 Pulse Ox 96 12/17/16 12:00 Intake & Output 12/16/16 12/17/16 12/17/16 18:59 06:59 18:59 Intake Total 715 240 Output Total 150 Balance 715 90 Weight 55 kg 55 kg 55 kg Intake: Oral 715 240 Output: Urine 150 Other: Voiding Method Diaper Diaper Diaper # Voids 1 1 # Bowel Movements 1 0 1 - Exam Gen appearance in no distress answers questions appropriately Lungs currently clear to auscultation Heart Irregularly irregular. S1-S2 heard no murmurs appreciated Abdomen is soft nontender organomegaly no suprapubic tenderness noted Neurologically moves all 4 extremities Lower extremity is no edema appreciated - Labs CBC & Chem 7: 12/17/16 06:02 12/17/16 09:21 Labs: Abnormal Lab Results - Last 24 Hours (Table) 12/17/16 12/17/16 Range/Units 06:02 09:21 RBC 3.68 L (3.80-5.40) m/uL Hgb 9.9 L (11.4-16.0) gm/dL Hct 33.2 L (34.0-46.0) % MCHC 29.9 L (31.0-37.0) g/dL Carbon Dioxide 16 L (22-30) mmol/L BUN 32 H (7-17) mg/dL Creatinine 1.81 H (0.52-1.04) mg/dL Glucose 172 H (74-99) mg/dL Calcium 8.3 L (8.4-10.2) mg/dL AST 11 L (14-36) U/L Total Protein 5.8 L (6.3-8.2) g/dL Albumin 2.5 L (3.5-5.0) g/dL Microbiology - Last 24 Hours (Table) 12/14/16 19:29 Blood Culture - Preliminary Blood No Growth after 48 hours Assessment and Plan Plan: #1 acute metabolic encephalopathy #2 acute kidney injury secondary to prerenal in etiology likely secondary from poor oral intake #3 non-anion gap metabolic acidosis secondary to #2 #4 dementia #5 urinary tract infection #6 history of hypertension #7 left-sided ureteral stent #8 sinus dysrhythmia Plan Continue sodium bicar. repeat electrolytes. Pt will be given an additional 1l of ivf. Discussed with the family, that these episodes of dehydration will recur, as pt' s dementia is likely advancing and her appetite has decreased. Continue telemetry, if controlled, will dc back to [place] [facility]. renal function improving.
[2016-12-17] MEDS: MELATONIN 3 MG TABLET PO SCH (20:14)
[2016-12-17] MEDS ORDERED: Magnesium Replacement Protocol 1 EACH MISC MISCELLANE PRN (20:49)
[2016-12-17] MEDS: MAGNESIUM SULFATE-D5W PMX 1 GM in DEXTROSE/WATER 1 100ML.BAG IVPB SCH (22:08)
[2016-12-18] MEDS: MAGNESIUM SULFATE-D5W PMX 1 GM in DEXTROSE/WATER 1 100ML.BAG IVPB SCH (00:15)
[2016-12-18] MEDS: SODIUM CHLORIDE 0.9% 1,000 ML IV SCH ×3 (04:50→12:49)
[2016-12-18] MEDS: LACTOBACILLUS ACIDOPH & BULGAR 1 EACH PACKET PO SCH (06:19)
[2016-12-18] MEDS: EZETIMIBE 10 MG TAB PO SCH (06:19)
[2016-12-18] MEDS: DONEPEZIL 5 MG TAB PO SCH (06:19)
[2016-12-18] MEDS: ASPIRIN 81 MG CHEW PO SCH (06:20)
[2016-12-18] MEDS: CITALOPRAM HYDROBROMIDE 20 MG TAB PO SCH (06:20)
[2016-12-18] MEDS: DILTIAZEM CD 120 MG CAP.ER.24H PO SCH (06:20)
[2016-12-18 07:20] LABS: Magnesium 2.3 mg/dL (1.6-2.3); Potassium 3.7 mmol/L (3.5-5.1); Total Bilirubin 0.3 mg/dL (0.2-1.3)
[2016-12-18] MEDS ORDERED: PANTOPRAZOLE 40 MG TABLET PO SCH (07:30)
[2016-12-18 07:57] LABS: CHCM 28.3; HCT 35.2 % (34.0-46.0); HDW 2.96; Hypochromasia Marked; MCH 26.3 pg (25.0-35.0); MCHC 28.5 g/dL (31.0-37.0); MCV 92.3 fL (80.0-100.0); Mean Platelet Volume 7.1; RBC 3.81 m/uL (3.80-5.40); RDW 14.8 % (11.5-15.5); WBC 7.2 k/uL (3.8-10.6); WBC (Perox) 7.46
[2016-12-18 08:25] LABS: Add Differential Manual Differential
[2016-12-18 08:39] LABS: Nucleated Red Blood Cells 0 /100 WBC (0-0); Total Cells Counted 100
[2016-12-18] MEDS: ATORVASTATIN 10 MG TAB PO SCH (09:12)
[2016-12-18] MEDS: SODIUM BICARBONATE TAB 650 MG TAB PO SCH (09:12)
[2016-12-18] MEDS: HEPARIN SODIUM,PORCINE 5,000 UNIT/ML 1 ML VIAL SQ SCH (09:12)
[2016-12-18 10:58] VITALS: RESP 20
[2016-12-18] MEDS: MULTIVITAMINS, THERA 1 EACH TAB PO SCH (12:49)
[2016-12-18] MEDS: THIAMINE 100 MG TAB PO SCH (12:49)
[2016-12-18] MEDS: FOLIC ACID 1 MG TAB PO SCH (12:49)
[2016-12-18 13:41] VITALS: BP 109/58; PULSE 67; TEMP 98.6
[2016-12-18] MEDS ORDERED: SODIUM BICARB 8.4% 50 ML SYR (1 MEQ/ML) IV STA (16:03)
--- NOTE | 2016-12-18 16:57 | P.DS ---
Providers Date of admission: 12/14/16 15:16 Attending physician: Gigi Patel Consults: 12/14/16 17:29 Consult Physician Routine Consulting Provider: Shine Summers Consult Reason/Comments: knew the pt Do you want consulting provider notified?: Yes Primary care physician: Jack Xie [facility] Course: 86-year-old female with the advanced dementia currently a resident of [facility] comes in the hospital with change in mental status. Patient was noted to have an acute kidney injury which is attribute it to be prerenal in etiology. Patient apparently had poor intake take prior to admission. Patient was given IV hydration there was some suspicion for urinary tract infection as patient has a left-sided stent placed for previous hydronephrosis done by Dr. Oreilly in the past. Patient was started on IV antibiotics Patient is significant improvement is able to answer questions patient's daughter is at bedside. States that she is back to her baseline. No other new overnight events are reported. 12/17/16 Denies having any new complaints. Pt was having episodes of a fib with rvr. On the day of discharge Patient was slightly drowsy however this is kind of her baseline. Patient apparently was not able to tolerate too much oral intake. Again I reiterated and discussed with the family was at bedside that approaching hospice as her oral intake has significantly decreased will likely be the best outcome in her' s case as patient will likely get dehydrated again due to poor intake and will get readmitted to the hospital. - Exam Gen appearance in no distress answers questions appropriately Lungs currently clear to auscultation Heart Irregularly irregular. S1-S2 heard no murmurs appreciated Abdomen is soft nontender organomegaly no suprapubic tenderness noted Neurologically moves all 4 extremities Lower extremity is no edema appreciated Assessment and Plan Plan: #1 acute metabolic encephalopathy #2 acute kidney injury secondary to prerenal in etiology likely secondary from poor oral intake #3 non-anion gap metabolic acidosis secondary to #2 #4 dementia #5 urinary tract infection #6 history of hypertension #7 left-sided ureteral stent #8 sinus dysrhythmia Plan Repeat lites in one week. Patient's heart rate is well-controlled. I did discussed that due to the patient's poor oral intake she might get readmitted to the hospital for dehydration. As her course of dementia is getting worse [ pts prognosis is extremely poor patient may benefit from being considered for hospice. referral to hospice will be given to the patient , patient's family should meet with hospice during the week and a decision should be made thereafter. Continue sodium bicarb 650 mg 3 times a day. Patient will be given an amp of bicarb. Repeat labs next week. Patient Condition at Discharge: Fair Plan - Discharge Summary New Discharge Prescriptions: Cefuroxime [Ceftin] 250 mg PO BID #10 tablet Melatonin 3 mg PO HS #30 tablet Sodium Bicarbonate Tab 650 mg PO TID 10 Days Discharge Medication List Citalopram Hydrobromide [CeleXA] 20 mg PO DAILY@0700 09/09/15 [History] Diltiazem HCl [Diltiazem 24Hr ER] 120 mg PO DAILY@0700 03/04/16 [History] L.acidoph,Paracasei, B.lactis [Probiotic] 1 tab PO DAILY@0700 04/23/16 [History] Donepezil [Aricept] 5 mg PO DAILY@0700 06/04/16 [History] Aspirin EC [Ecotrin Low Dose] 81 mg PO Q48H 12/14/16 [History] Cefuroxime [Ceftin] 250 mg PO BID #10 tablet 12/18/16 [Rx] Melatonin 3 mg PO HS #30 tablet 12/18/16 [Rx] Sodium Bicarbonate Tab 650 mg PO TID 10 Days 12/18/16 [Rx] Follow up Appointment(s)/Referral(s): Jack Xie MD [Primary Care Provider] - 12/22/16 1:30 pm Ambulatory/Diagnostic Orders: Comprehensive Metabolic Panel [LAB.AMB] Time Frame: 1 Week, Location: Determined By Patient Comprehensive Metabolic Panel [LAB.AMB] Time Frame: 2 Weeks, Location: Determined By Patient Discharge Disposition: HOME WITH HOME HEALTH SERVICES
== END 2016-12-18 17:07 | disposition home health service (06) | DRG 682 ==
LOC: EC 10:30 → 6SEL 15:16
PROVIDERS: ADMIT Hospitalist; ATTEND Hospitalist
DX: N17.9 Acute kidney failure, unspecified (principal); G93.41 Metabolic encephalopathy; E43 Unspecified severe protein-calorie malnutrition; E87.2 Acidosis; N39.0 Urinary tract infection, site not specified; E87.1 Hypo-osmolality and hyponatremia; Z68.1 Body mass index [BMI] 19.9 or less, adult; I48.91 Unspecified atrial fibrillation; E87.5 Hyperkalemia; Z66 Do not resuscitate; E86.0 Dehydration; F03.90 Unspecified dementia, unspecified severity, without behavioral disturbance, psychotic disturbance, mood disturbance, and anxiety; I12.9 Hypertensive chronic kidney disease with stage 1 through stage 4 chronic kidney disease, or unspecified chronic kidney disease; B96.20 Unspecified Escherichia coli [E. coli] as the cause of diseases classified elsewhere; E78.5 Hyperlipidemia, unspecified; H40.9 Unspecified glaucoma; J45.909 Unspecified asthma, uncomplicated; K21.9 Gastro-esophageal reflux disease without esophagitis; R26.9 Unspecified abnormalities of gait and mobility; Z85.51 Personal history of malignant neoplasm of bladder; Z87.442 Personal history of urinary calculi; Z87.440 Personal history of urinary (tract) infections; Z88.0 Allergy status to penicillin; Z88.1 Allergy status to other antibiotic agents; Z88.2 Allergy status to sulfonamides; Z88.8 Allergy status to other drugs, medicaments and biological substances; N18.9 Chronic kidney disease, unspecified; Z79.82 Long term (current) use of aspirin; Z79.899 Other long term (current) drug therapy
CPT/HCPCS: 36415; 80048; 80053; 81001; 82550; 82553; 83605; 83735; 84100; 84132; 84443; 84484; 85025; 85610; 85730; 87040; 87086; 93005; 96361; 96365; 96375; 99285

== ENCOUNTER 2018-02-03 12:18 | Inpatient (IN) | payer MEDICARE ==
--- NOTE | 2018-02-03 12:55 | ED ---
General Adult HPI - General Chief complaint: Weakness Stated complaint: lethargy/poss UTI Time Seen by Provider: 02/03/18 12:20 Source: EMS, RN notes reviewed, old records reviewed Mode of arrival: EMS Limitations: altered mental status - History of Present Illness Initial comments: This is an 87-year-old female to the ER for evaluation. Patient presents for evaluation regards to weakness. Altered mental state decreased appetite lack of activity. Patient's been treated with outpatient urinary tract infection is still having bowel smelling purulent urine. No fevers. Mild abdominal pain. Family states patient is a poor strain history is obtained from patient's daughter. Patient denies any complaints of patient has dementia - Related Data Home Medications Medication Instructions Recorded Confirmed Citalopram Hydrobromide [CeleXA] 20 mg PO DAILY@0700 09/09/15 02/03/18 Diltiazem HCl [Diltiazem 24Hr ER] 120 mg PO DAILY@0700 03/04/16 02/03/18 Donepezil [Aricept] 5 mg PO DAILY@0700 06/04/16 02/03/18 Aspirin EC [Ecotrin Low Dose] 81 mg PO MOWEFR 12/14/16 02/03/18 Loperamide [Imodium] 2 mg PO SUTUTHSA 02/03/18 02/03/18 Allergies Allergy/AdvReac Type Severity Reaction Status Date / Time ciprofloxacin [From Cipro] Allergy Nausea & Verified 02/03/18 12:53 Vomiting & Diarrhea ciprofloxacin HCl Allergy Nausea & Verified 02/03/18 12:53 [From Cipro] Vomiting & Diarrhea mold Allergy Unknown Verified 02/03/18 12:53 nitrofurantoin Allergy Nausea & Verified 02/03/18 12:53 [From Macrobid] Vomiting & Diarrhea nitrofurantoin Allergy Nausea & Verified 02/03/18 12:53 macrocrystalline Vomiting & [From Macrobid] Diarrhea Penicillins Allergy Rash/Hives, Verified 02/03/18 12:53 diarrhea sulfamethoxazole Allergy Nausea & Verified 02/03/18 12:53 [From Bactrim] Vomiting & Diarrhea tamsulosin HCl [From Flomax] Allergy dizziness,v Verified 02/03/18 12:53 omiting trimethoprim [From Bactrim] Allergy Nausea & Verified 02/03/18 12:53 Vomiting & Diarrhea chocolate flavor AdvReac Diarrhea Verified 02/03/18 12:53 midazolam HCl [From Versed] AdvReac paranoid,combative,severe Verified 12:53 confusion,hallucinations Review of Systems ROS Statement: Those systems with pertinent positive or pertinent negative responses have been documented in the HPI. ROS Other: All systems not noted in ROS Statement are negative. Past Medical History Past Medical History: Atrial Fibrillation, Asthma, Dementia, Eye Disorder, Hyperlipidemia, Hypertension, Renal Disease Additional Past Medical History / Comment(s): nephrolithiasis, hydronephrosis, renal insufficiency, bladder cancer 30 yrs ago with removal and BCG instilled, urinary retention, DAUGHTER STATED PT HAS CHRONIC DIARRHEA-"NOT NEW FOR PT", falls, bilateral glaucoma, hx of sepsis, UTI(E-COLI 2014). incont of stool and urine, wears depends. History of Any Multi-Drug Resistant Organisms: None Reported Additional Past Surgical History / Comment(s): LOOP MONITOR LT CHEST,RT URETER STENT PLACEMENT q 6mos x 30 yrs-per gricel-last placement ,RT NEPHROLITHOTOMY,CANCEROUS BLADDER TUMOR REMOVED with BCG instilled Additional Past Anesthesia/Blood Transfusion Reaction / Comment(s): INCREASED CONFUSION WITH ANESTHESIA. INCREASED PARANOID,HALLUCINATIONS,COMBATIVE, NO HX BLOOD TRANSFUSION Type of Cardiac Device: Loop Device Placement Date:: 2011? Past Psychological History: No Psychological Hx Reported Smoking Status: Never smoker Past Alcohol Use History: None Reported Past Drug Use History: None Reported - Past Family History Mother Family Medical History: Cancer Additional Family Medical History / Comment(s): PANCREATIC CA Father Family Medical History: CVA/TIA Additional Family Medical History / Comment(s): MULT CVA'S General Exam Limitations: altered mental status General appearance: alert, in no apparent distress Head exam: Present: atraumatic, normocephalic, normal inspection Eye exam: Present: normal appearance, PERRL, EOMI. Absent: scleral icterus, conjunctival injection, periorbital swelling ENT exam: Present: normal exam, mucous membranes moist Neck exam: Present: normal inspection. Absent: tenderness, meningismus, lymphadenopathy Respiratory exam: Present: normal lung sounds bilaterally. Absent: respiratory distress, wheezes, rales, rhonchi, stridor Cardiovascular Exam: Present: regular rate, normal rhythm, normal heart sounds. Absent: systolic murmur, diastolic murmur, rubs, gallop, clicks GI/Abdominal exam: Present: soft, normal bowel sounds. Absent: distended, tenderness, guarding, rebound, rigid Extremities exam: Present: normal inspection, full ROM, normal capillary refill. Absent: tenderness, pedal edema, joint swelling, calf tenderness Back exam: Present: normal inspection Neurological exam: Present: alert, oriented X3, CN II-XII intact Psychiatric exam: Present: normal affect, normal mood Skin exam: Present: warm, dry, intact, normal color. Absent: rash EKG Findings - EKG Comments: EKG Findings:: EKG shows sinus rhythm rate of 70, pO2 14, QRS 02, QTc 447 Medical Decision Making - Medical Decision Making 87 female the ER for evaluation of altered mental state, positive urinary tract infection. Patient will place an IV antibiotics admitted for cultures. Continued IV therapy IV hydration. Patient has significant and extensive drug ALLERGIES - Lab Data Lab Results 02/03/18 Range/Units 14:25 Urine Color Light Yellow Urine Appearance Turbid H (Clear) Urine pH 6.0 (5.0-8.0) Ur Specific Mcgregor 1.015 (1.001-1.035) Urine Protein 2+ H (Negative) Urine Glucose (UA) Negative (Negative) Urine Ketones Negative (Negative) Urine Blood Moderate H (Negative) Urine Nitrite Negative (Negative) Urine Bilirubin Negative (Negative) Urine Urobilinogen <2.0 (<2.0) mg/dL Ur Leukocyte Esterase Large H (Negative) Urine WBC >182 H (0-5) /hpf Urine WBC Clumps Many H (None) /hpf Ur Squamous Epith Cells 14 H (0-4) /hpf Urine Bacteria Rare H (None) /hpf Urine Mucus Occasional H (None) /hpf Disposition Clinical Impression: UTI (urinary tract infection), Urinary retention, Failure of outpatient treatment Disposition: ADMITTED IP TO THIS HOSP Condition: Fair Referrals: Jack Xie MD [Primary Care Provider] - 1-2 days
[2018-02-03] MEDS ORDERED: SODIUM CHLORIDE 0.9% 500 ML IV STA (13:32)
[2018-02-03] MEDS ORDERED: SODIUM CHLORIDE 0.9% 1,000 ML IV STA (13:32)
[2018-02-03] MEDS ORDERED: MEROPENEM 2 GM in SODIUM CHLORIDE 0.9% 100 ML IVPB STA (13:33)
--- NOTE | 2018-02-03 14:42 | XR ---
EXAMINATION TYPE: XR chest 2V DATE OF EXAM: 02/03/2018 COMPARISON: 10/26/2017 TECHNIQUE: PA and lateral views submitted. HISTORY: Weakness FINDINGS: The lungs are clear and there is no pneumothorax, pleural effusion, or focal pneumonia. Biapical pl eural thickening. Atherosclerotic change aorta. Heart size stable. Interstitium unchanged. Degenerati ve change of the spine. Patient rotation limits assessment of the right hilum and right paratracheal region. IMPRESSION: 1. No acute process.
[2018-02-03 15:00] LABS: Appearance,Urine Turbid (Clear); Bacteria,Urine Rare /hpf; Bilirubin,Urine Negative (Negative); Blood,Urine Moderate (Negative); Color,Urine Light Yellow; Glucose,Urine (UA) Negative (Negative); Ketones,Urine Negative (Negative); Leukocyte Esterase,Urine Large (Negative); Mucus,Urine Occasional /hpf; Nitrite,Urine Negative (Negative); Protein,Urine 2+ (Negative); Specific Gravity,Urine 1.015 (1.001-1.035); Squamous Epithelial Cell,Urine 14 /hpf (0-4); Urobilinogen,Urine <2.0 mg/dL (<2.0); WBC,Urine >182 /hpf (0-5)
[2018-02-03 16:00] LABS: HCT 34.6 % (34.0-46.0); HGB 10.9 gm/dL (11.4-16.0); Hypochromasia Slight; MCH 26.6 pg (25.0-35.0); MCHC 31.6 g/dL (31.0-37.0); MCV 84.4 fL (80.0-100.0); Mean Platelet Volume 7.2; Platelet Count 224 k/uL (150-450); RDW 14.8 % (11.5-15.5); WBC 6.1 k/uL (3.8-10.6)
[2018-02-03 16:06] LABS: Albumin 2.7 g/dL (3.5-5.0); Calcium 7.7 mg/dL (8.4-10.2); Phosphorus 2.9 mg/dL (2.5-4.5); Potassium 4.4 mmol/L (3.5-5.1); Total Bilirubin 0.4 mg/dL (0.2-1.3); Total Protein 5.5 g/dL (6.3-8.2)
[2018-02-03 16:09] LABS: Creatine Kinase <20 U/L (30-135)
[2018-02-03 16:20] LABS: Creatine Kinase MB <0.2 ng/mL (0.0-2.4); Troponin I <0.012 ng/mL (0.000-0.034)
[2018-02-03] MEDS ORDERED: SODIUM CHLORIDE 0.9% 1,000 ML IV ONE (16:21)
[2018-02-03 16:31] LABS: Lymphocytes # (M) 1.77 k/uL (1.0-4.8); Monocytes # (M) 0.55 k/uL (0-1.0); Neutrophils # (M) 3.78 k/uL (1.3-7.7); Neutrophils % (M) 62 %; Nucleated Red Blood Cells 0 /100 WBC (0-0); Polychromasia Present; Total Cells Counted 100
[2018-02-03] MEDS ORDERED: ACETAMINOPHEN TAB 500 MG TAB PO PRN (20:34)
[2018-02-03] MEDS ORDERED: LOPERAMIDE 2 MG CAP PO SCH (20:45)
[2018-02-03] MEDS: MEROPENEM 1 GM in SODIUM CHLORIDE 0.9% 100 ML IVPB SCH (23:57)
[2018-02-04] MEDS: DILTIAZEM CD 120 MG CAP.ER.24H PO SCH (08:44)
[2018-02-04] MEDS: DONEPEZIL 5 MG TAB PO SCH (08:44)
[2018-02-04] MEDS: CITALOPRAM HYDROBROMIDE 20 MG TAB PO SCH (08:44)
[2018-02-04] MEDS: ASPIRIN 81 MG PO SCH (08:44)
[2018-02-04] MEDS ORDERED: ENOXAPARIN 40 MG/0.4 ML SYRINGE SQ SCH (09:00)
--- NOTE | 2018-02-04 10:52 | P.CNPUL ---
History of Present Illness Consult date: 02/04/18 Requesting physician: Nica Burton Reason for consult: other Chief complaint: Altered mental status, failed outpatient treatment for UTI History of present illness: This is an 87-year-old female patient who had previously seen Dr. Xie as a primary care physician. She now follows with Dr. Burton I believe. She has a history of hypertension, hyperlipidemia, psoriasis with psoriatic arthritis, glaucoma, dementia. She has has a significant history of chronic right ureter stricture and had a stent placement initially 30 years ago in [place]. She now follows with Dr. Denton for recurrent nephrolithiasis, hematuria, recurrent urinary tract infections. She does have her stent changed out every 6 months or so. She has had multiple cystoscopies and cauterization procedures in the bladder in the past as well. She follows with Dr. Yao regarding the recurrent urinary tract infections. The patient has multiple antibiotic ALLERGIES. She was brought here to the emergency room yesterday with some altered mental status and ongoing urinary tract infections. Her urine is quite turbid with moderate blood and large leukocyte esterase. No leukocytosis. Hemoglobin 10.9. Creatinine 1.50. She has been febrile with a T-max of 100.4. She's been hemodynamically stable. Maintaining good O2 saturations in the upper 90s on room air. She is seen today in consultation on the regular medical floor. She is a poor historian secondary to her dementia. She denies any shortness of breath. She is unclear as to why she is here. She is disoriented to place and time. She has been initiated on meropenem. Acetaminophen for her temps. Review of Systems ROS unobtainable: due to mental status Past Medical History Past Medical History: Atrial Fibrillation, Asthma, Dementia, Eye Disorder, Hyperlipidemia, Hypertension, Renal Disease Additional Past Medical History / Comment(s): pt poor historian.info came from daughter. nephrolithiasis, hydronephrosis, renal insufficiency, bladder cancer 30 yrs ago with removal and BCG instilled, urinary retention, DAUGHTER STATED PT HAS had CHRONIC DIARRHEA-pt takes anti diarrheal rx 3 times a week and it's improvng", past falls, bilateral glaucoma, hx of sepsis, UTI(E-COLI 2014). incont of stool and urine, wears depends. History of Any Multi-Drug Resistant Organisms: None Reported Additional Past Surgical History / Comment(s): LOOP MONITOR LT CHEST,RT URETER STENT PLACEMENT q 6mos x 30 yrs-per gricel-last placement ,RT NEPHROLITHOTOMY,CANCEROUS BLADDER TUMOR REMOVED with BCG instilled Additional Past Anesthesia/Blood Transfusion Reaction / Comment(s): INCREASED CONFUSION WITH ANESTHESIA. INCREASED PARANOID,HALLUCINATIONS,COMBATIVE, NO HX BLOOD TRANSFUSION Type of Cardiac Device: Loop Device Placement Date:: 2011? Smoking Status: Never smoker - Past Family History Mother Family Medical History: Cancer Additional Family Medical History / Comment(s): PANCREATIC CA Father Family Medical History: CVA/TIA Additional Family Medical History / Comment(s): MULT CVA'S Medications and Allergies Home Medications Medication Instructions Recorded Confirmed Type Citalopram Hydrobromide [CeleXA] 20 mg PO DAILY@0700 09/09/15 02/03/18 History Diltiazem HCl [Diltiazem 24Hr ER] 120 mg PO DAILY@0700 03/04/16 02/03/18 History Donepezil [Aricept] 5 mg PO DAILY@0700 06/04/16 02/03/18 History Aspirin EC [Ecotrin Low Dose] 81 mg PO MOWEFR 12/14/16 02/03/18 History Loperamide [Imodium] 2 mg PO SUTUTHSA 02/03/18 02/03/18 History Allergies Allergy/AdvReac Type Severity Reaction Status Date / Time ciprofloxacin [From Cipro] Allergy Nausea & Verified 02/03/18 12:53 Vomiting & Diarrhea ciprofloxacin HCl Allergy Nausea & Verified 02/03/18 12:53 [From Cipro] Vomiting & Diarrhea mold Allergy Unknown Verified 02/03/18 12:53 nitrofurantoin Allergy Nausea & Verified 02/03/18 12:53 [From Macrobid] Vomiting & Diarrhea nitrofurantoin Allergy Nausea & Verified 02/03/18 12:53 macrocrystalline Vomiting & [From Macrobid] Diarrhea Penicillins Allergy Rash/Hives, Verified 02/03/18 12:53 diarrhea sulfamethoxazole Allergy Nausea & Verified 02/03/18 12:53 [From Bactrim] Vomiting & Diarrhea tamsulosin HCl [From Flomax] Allergy dizziness,v Verified 02/03/18 12:53 omiting trimethoprim [From Bactrim] Allergy Nausea & Verified 02/03/18 12:53 Vomiting & Diarrhea chocolate flavor AdvReac Diarrhea Verified 02/03/18 12:53 midazolam HCl [From Versed] AdvReac paranoid,combative,severe Verified 12:53 confusion,hallucinations Physical Exam Vitals: Vital Signs Temp Pulse Pulse Resp BP BP Pulse Ox 02/04/18 07:00 100.2 F H 63 16 114/69 97 02/03/18 23:00 97.3 F L 63 16 121/58 97 02/03/18 18:19 100.4 F H 70 20 117/57 97 02/03/18 16:37 99.1 F 66 16 113/55 96 02/03/18 15:00 68 16 113/58 98 02/03/18 13:00 74 16 124/77 99 Intake and Output 02/03/18 02/04/18 02/04/18 22:59 06:59 14:59 Intake Total 590 1200 Balance 590 1200 Intake: Intake, IV Titration 1200 Amount Sodium Chloride 0.9% 1, 1200 000 ml @ 100 mls/hr IV . Q10H ONE Rx#:[id number] Oral 590 Other: Voiding Method Indwelling Catheter Indwelling Catheter GENERAL EXAM: Frail, cachectic. Alert, disoriented to time and place, comfortable in no apparent distress. HEAD: Normocephalic. EYES: Normal reaction of pupils, equal size. NOSE: Clear with pink turbinates. THROAT: No erythema or exudates. NECK: No masses, no JVD. CHEST: No chest wall deformity. LUNGS: Equal air entry with no crackles, wheeze, rhonchi or dullness. CVS: S1 and S2 normal with no audible murmur, regular rhythm. ABDOMEN: No hepatosplenomegaly, normal bowel sounds, no guarding or rigidity. SPINE: No scoliosis or deformity SKIN: No rashes CENTRAL NERVOUS SYSTEM: No focal deficits, tone is normal in all 4 extremities. EXTREMITIES: There is no peripheral edema. No clubbing, no cyanosis. Peripheral pulses are intact. Results - Laboratory Findings CBC and BMP: 02/03/18 15:19 02/03/18 15:19 Abnormal lab findings: Abnormal Labs 02/03/18 02/03/18 02/03/18 14:25 15:19 15:19 Hgb 10.9 L Chloride 110 H Carbon Dioxide 19 L BUN 25 H Creatinine 1.50 H Glucose 61 L Calcium 7.7 L AST 10 L Total Creatine Kinase Total Protein 5.5 L Albumin 2.7 L Urine Appearance Turbid H Urine Protein 2+ H Urine Blood Moderate H Ur Leukocyte Esterase Large H Urine WBC >182 H Urine WBC Clumps Many H Ur Squamous Epith Cells 14 H Urine Bacteria Rare H Urine Mucus Occasional H 02/03/18 15:19 Hgb Chloride Carbon Dioxide BUN Creatinine Glucose Calcium AST Total Creatine Kinase <20 L Total Protein Albumin Urine Appearance Urine Protein Urine Blood Ur Leukocyte Esterase Urine WBC Urine WBC Clumps Ur Squamous Epith Cells Urine Bacteria Urine Mucus - Diagnostic Findings Chest x-ray: image reviewed Assessment and Plan Assessment: Impression: #1 Altered mental status secondary to dementia and recurrent urinary tract infections. Previous cultures revealed E. coli, enterococcus faecalis. #2 Acute urinary tract infection, cultures pending. Initiated on meropenem. #3 Febrile illness secondary to above. #4 History of chronic right ureter stricture with stent placement approximately 30 years ago, changed out every 6 months. #5 History of hematuria, nephrolithiasis, hydronephrosis with multiple cystoscopies and cauterization. #6 Hypertension. #7 History of cardiac arrhythmia with previous loop recorder. Currently on diltiazem. #8 Dementia. Currently on Aricept. #9 History of chronic diarrhea treated with Imodium every other day. #10 History of bladder cancer status post tumor removal and BCG instilled. #11 Poor overall functional performance based on the above-mentioned multiple medical comorbidities. Plan: The patient was seen and evaluated by Dr. Xie. She is currently stable from the pulmonary standpoint. Maintaining good O2 saturations in the 90s on room air. Her chest x-ray showed no acute pulmonary process. Urine culture is pending. Continue Merrem for now. Lovenox for DVT prophylaxis. We will continue to follow and make further recommendations based on her clinical status. I, the cosigning physician, performed a history & physical examination of the patient. Lungs sounds are clear. Maintaining good O2 saturations in the 90s on room air. I discussed the assessment and plan of care with my nurse practitioner, Kirsten Beckett. I attest to the above note as dictated by her. Time with Patient: Greater than 30
--- NOTE | 2018-02-04 11:30 | P.HPIM ---
History of Present Illness H&P Date: 02/04/18 Chief Complaint: Altered mental status changes and generalized weakness This is a 87-year-old female with a known history of dementia, recurrent UTI, bladder cancer, chronic kidney disease, atrial fibrillation, hyperlipidemia, kidney stones and hypertension. She also has a history of chronic right ureter stricture and has a stent placed initially 30 years ago at [place]. She follows with Dr. Frye for her recurrent nephrolithiasis and recurrent UTIs. She has a stent changed every 6 months or so. Patient is resident at the [facility]. Apparently a week ago patient will started having very foul smelling urine was placed on Keflex and also given a prescription for Diflucan by urology. But after treatment of the urinary tract infection patient continued to have symptoms. Again foul smelling urine started to have altered mental status very confused generalized weakness and decrease in appetite and decrease in activity. She had a temp of 100.4 on admission. And urinalysis was positive for UTI. She was placed on meropenem. Consult was placed for Dr. Yao for further antibiotic recommendations. Patient does have multiple ALLERGIES to antibiotics. She also has issues with chronic diarrhea and incontinence of both urine and stool likely contributing to her recurrent UTIs. Currently on Lomotil. Which she has been newly started and the daughter-in- law has reported improvement in patient's bowel movements. Patient is currently alert and orientated to her name only. She reports no pain. Denies any chest pain or shortness breath. Denies any nausea or vomiting. Patient had a Conroy catheter inserted in the ER yesterday apparently due to her issues with incontinence. Dr. Xie consulted because patient is known to him and he had been their PCP. Review of Systems Please refer to HPI otherwise unremarkable Past Medical History Past Medical History: Atrial Fibrillation, Asthma, Dementia, Eye Disorder, Hyperlipidemia, Hypertension, Renal Disease Additional Past Medical History / Comment(s): pt poor historian.info came from daughter. nephrolithiasis, hydronephrosis, renal insufficiency, bladder cancer 30 yrs ago with removal and BCG instilled, urinary retention, DAUGHTER STATED PT HAS had CHRONIC DIARRHEA-pt takes anti diarrheal rx 3 times a week and it's improvng", past falls, bilateral glaucoma, hx of sepsis, UTI(E-COLI 2014). incont of stool and urine, wears depends. History of Any Multi-Drug Resistant Organisms: None Reported Additional Past Surgical History / Comment(s): LOOP MONITOR LT CHEST,RT URETER STENT PLACEMENT q 6mos x 30 yrs-per gricel-last placement ,RT NEPHROLITHOTOMY,CANCEROUS BLADDER TUMOR REMOVED with BCG instilled Additional Past Anesthesia/Blood Transfusion Reaction / Comment(s): INCREASED CONFUSION WITH ANESTHESIA. INCREASED PARANOID,HALLUCINATIONS,COMBATIVE, NO HX BLOOD TRANSFUSION Type of Cardiac Device: Loop Device Placement Date:: 2011? Smoking Status: Never smoker - Past Family History Mother Family Medical History: Cancer Additional Family Medical History / Comment(s): PANCREATIC CA Father Family Medical History: CVA/TIA Additional Family Medical History / Comment(s): MULT CVA'S Medications and Allergies Home Medications Medication Instructions Recorded Confirmed Type Citalopram Hydrobromide [CeleXA] 20 mg PO DAILY@0700 09/09/15 02/03/18 History Diltiazem HCl [Diltiazem 24Hr ER] 120 mg PO DAILY@0700 03/04/16 02/03/18 History Donepezil [Aricept] 5 mg PO DAILY@0700 06/04/16 02/03/18 History Aspirin EC [Ecotrin Low Dose] 81 mg PO MOWEFR 12/14/16 02/03/18 History Loperamide [Imodium] 2 mg PO SUTUTHSA 02/03/18 02/03/18 History Allergies Allergy/AdvReac Type Severity Reaction Status Date / Time ciprofloxacin [From Cipro] Allergy Nausea & Verified 02/03/18 12:53 Vomiting & Diarrhea ciprofloxacin HCl Allergy Nausea & Verified 02/03/18 12:53 [From Cipro] Vomiting & Diarrhea mold Allergy Unknown Verified 02/03/18 12:53 nitrofurantoin Allergy Nausea & Verified 02/03/18 12:53 [From Macrobid] Vomiting & Diarrhea nitrofurantoin Allergy Nausea & Verified 02/03/18 12:53 macrocrystalline Vomiting & [From Macrobid] Diarrhea Penicillins Allergy Rash/Hives, Verified 02/03/18 12:53 diarrhea sulfamethoxazole Allergy Nausea & Verified 02/03/18 12:53 [From Bactrim] Vomiting & Diarrhea tamsulosin HCl [From Flomax] Allergy dizziness,v Verified 02/03/18 12:53 omiting trimethoprim [From Bactrim] Allergy Nausea & Verified 02/03/18 12:53 Vomiting & Diarrhea chocolate flavor AdvReac Diarrhea Verified 02/03/18 12:53 midazolam HCl [From Versed] AdvReac paranoid,combative,severe Verified 12:53 confusion,hallucinations Physical Exam Vitals: Vital Signs Temp Pulse Pulse Resp BP BP Pulse Ox 02/04/18 07:00 100.2 F H 63 16 114/69 97 02/03/18 23:00 97.3 F L 63 16 121/58 97 02/03/18 18:19 100.4 F H 70 20 117/57 97 02/03/18 16:37 99.1 F 66 16 113/55 96 02/03/18 15:00 68 16 113/58 98 02/03/18 13:00 74 16 124/77 99 Intake and Output 02/03/18 02/04/18 02/04/18 22:59 06:59 14:59 Intake Total 590 1200 Balance 590 1200 Intake: Intake, IV Titration 1200 Amount Sodium Chloride 0.9% 1, 1200 000 ml @ 100 mls/hr IV . Q10H ONE Rx#:[id number] Oral 590 Other: Voiding Method Indwelling Catheter Indwelling Catheter Head normocephalic Neck supple Lungs clear to auscultation bilaterally no wheezing or crackles Heart regular rate and rhythm S1-S2, no rub or gallop Abdomen is soft nontender nondistended positive bowel sounds no hepatosplenomegaly Extremities no edema Neuro alert and orientated to one. Name only Results CBC & Chem 7: 02/03/18 15:19 02/03/18 15:19 Labs: Abnormal Lab Results - Last 24 Hours (Table) 02/03/18 02/03/18 02/03/18 Range/Units 14:25 15:19 15:19 Hgb 10.9 L (11.4-16.0) gm/dL Chloride 110 H (98-107) mmol/L Carbon Dioxide 19 L (22-30) mmol/L BUN 25 H (7-17) mg/dL Creatinine 1.50 H (0.52-1.04) mg/dL Glucose 61 L (74-99) mg/dL Calcium 7.7 L (8.4-10.2) mg/dL AST 10 L (14-36) U/L Total Creatine Kinase (30-135) U/L Total Protein 5.5 L (6.3-8.2) g/dL Albumin 2.7 L (3.5-5.0) g/dL Urine Appearance Turbid H (Clear) Urine Protein 2+ H (Negative) Urine Blood Moderate H (Negative) Ur Leukocyte Esterase Large H (Negative) Urine WBC >182 H (0-5) /hpf Urine WBC Clumps Many H (None) /hpf Ur Squamous Epith Cells 14 H (0-4) /hpf Urine Bacteria Rare H (None) /hpf Urine Mucus Occasional H (None) /hpf 02/03/18 Range/Units 15:19 Hgb (11.4-16.0) gm/dL Chloride (98-107) mmol/L Carbon Dioxide (22-30) mmol/L BUN (7-17) mg/dL Creatinine (0.52-1.04) mg/dL Glucose (74-99) mg/dL Calcium (8.4-10.2) mg/dL AST (14-36) U/L Total Creatine Kinase <20 L (30-135) U/L Total Protein (6.3-8.2) g/dL Albumin (3.5-5.0) g/dL Urine Appearance (Clear) Urine Protein (Negative) Urine Blood (Negative) Ur Leukocyte Esterase (Negative) Urine WBC (0-5) /hpf Urine WBC Clumps (None) /hpf Ur Squamous Epith Cells (0-4) /hpf Urine Bacteria (None) /hpf Urine Mucus (None) /hpf Thrombosis Risk Factor Assmnt - Choose All That Apply Any of the Below Risk Factors Present?: Yes Other Risk Factors: Yes Each Risk Factor Represents 2 Points: Malignancy Each Risk Factor Represents 3 Points: Age 75 years or older Other congenital or acquired thrombophilia - If yes, enter type in comment: No Thrombosis Risk Factor Assessment Total Risk Factor Score: 5 Thrombosis Risk Factor Assessment Level: High Risk Assessment and Plan Assessment: 1. Altered mental status changes likely metabolic encephalopathy due to her UTI. 2. Acute urinary tract infection: Started on meropenem. Await urine culture. Consult infectious disease 3. Acute on chronic kidney disease, stage III: Place patient on normal saline at 50 mL an hour. Repeat labs in a.m. 4. History of chronic right ureter stricture with stent placement approximately 30 years ago, changed every 6 months by urology 5. History of bladder cancer several years ago status post tumor removal and BCG instilled 6. History of essential hypertension 7. History of chronic diarrhea treated with Imodium every other day 8. Dementia continue with Aricept GI prophylaxis Pepcid and DVT prophylaxis Lovenox Time with Patient: Greater than 30 (Greater than 50% of the total time spent in counseling and coordination of care.I performed an examination of the patient and discussed their management with the physician Executive Assistant To President. I have reviewed the Physician Executive Assistant To President's notes and agree with the documented findings and plan of care)
[2018-02-04 12:00] VITALS: BMI 19.5
[2018-02-04] MEDS: SODIUM CHLORIDE 0.9% 1,000 ML IV SCH (12:58)
[2018-02-04] MEDS: MEROPENEM 1 GM in SODIUM CHLORIDE 0.9% 100 ML IVPB SCH (12:59)
--- NOTE | 2018-02-04 14:16 | CONS ---
CONSULTATION DATE OF SERVICE: 02/04/2018. REASON FOR CONSULTATION: Urinary tract infection and multiple antibiotic allergy. HISTORY OF PRESENT ILLNESS: The patient is an 87-year-old female with past medical history significant for dementia, recurrent tract infection, history of bladder cancer, chronic renal insufficiency. The patient apparently did have history of recurrent UTI and is being treated in the outpatient setting by her urologist and has been treated with course of Keflex because of foul-smelling urine and also Diflucan. However, the patient continued to go downhill per the daughter who was present at the bedside and provided most of the history. They noted the patient to be getting more weaker, urine to be more cloudy and foul smelling. No clear history of any nausea, no vomiting. With worsening mental status changes, the patient was brought to the [facility] ER for further evaluation of the same. She did have a fever of 100.4. White count was not significantly elevated; however, the urine was significantly positive with large leukocyte esterases with many bacteria. Cultures currently pending. Because of her multiple antibiotic allergy, she was started on meropenem and Infectious Disease was consulted for further recommendation regarding antibiotic therapy. She did have a chest x-ray that was reported negative for any pneumonia. Also this information has been obtained from prior review of the chart and talking to the daughter as the patient herself is not a very good historian. REVIEW OF SYSTEMS: Review of systems could not be reliably obtained, but the positive points have been mentioned in HPI. PAST MEDICAL HISTORY: Her past medical history is significant for dementia, hypertension, hyperlipidemia, renal insufficiency, atrial fibrillation, asthma, recurrent UTI, history of bladder cancer. PAST SURGICAL HISTORY: Loop monitor left chest, right ureteral stent placement, nephrolithotomy, resection of the bladder cancer. SOCIAL HISTORY: No history of smoking, drinking or drug use. Currently at [facility] [facility]. FAMILY HISTORY: Mother with history of pancreatic cancer. Father history CVA, TIA. ALLERGIES: Allergies to multiple antibiotics including CIPROFLOXACIN, NITROFURANTOIN, PENICILLIN, SULFAMETHOXAZOLE, TRIMETHOPRIM. PHYSICAL EXAMINATION: On examination, her blood pressure is 114/69 with a pulse of 63, temperature of 100.3. She is 97% on room air. General description is an elderly female lying in bed in no distress. No tachypnea or accessory muscle of respiration use. HEENT examination shows slight pallor. There is no scleral icterus. Oral mucous membrane is dry. NECK: Trachea central. No thyromegaly. LUNGS: Unlabored breathing, clear to auscultation anteriorly. No wheeze or crackle. HEART: S1, S2. Regular rate and rhythm. ABDOMEN: Soft, no tenderness. No guarding or rigidity. EXTREMITIES: No edema of feet. SKIN EXAMINATION: No rash or mass palpable. NEUROLOGICALLY: Patient is awake, appropriate. No agitation was noticed, but oriented x1 only. LABS: Hemoglobin is 10.9, white count 6.1 with a BUN of 25, creatinine 1.50. Urine is positive, culture currently pending. Last urine culture done at this facility was back in October 26, 2017 did shows an Enterococcus faecalis. DIAGNOSTIC IMPRESSION AND PLAN: 1. Patient with a history of recurrent urinary tract infection and a history of a bladder cancer, failing outpatient Keflex and the Diflucan therapy admitted to the hospital with mental status changes, low-grade fever and significantly positive UA. The likely source being the urinary tract infection. 2. Patient who does have multiple antibiotic allergies that do limit the number of antibiotics that could be safely used. PLAN: 1. Meropenem 1 gram q.12 hours should be coverage for underlying UTI mostly from the gram-negative, however should also cover the gram-positive such as Enterococcus, methicillin sensitive. 2. Depending upon the clinical response and culture will adjust medication further if needed. Daughter present at bedside. Her questions were answered. MMODL / IJN: [id number] /
[2018-02-05] MEDS: MEROPENEM 1 GM in SODIUM CHLORIDE 0.9% 100 ML IVPB SCH ×3 (00:05→23:22)
[2018-02-05 08:13] LABS: Albumin 2.3 g/dL (3.5-5.0); Calcium 7.9 mg/dL (8.4-10.2); Potassium 4.2 mmol/L (3.5-5.1); Total Bilirubin 0.3 mg/dL (0.2-1.3)
[2018-02-05 08:18] LABS: Basophils % (A) 0 %; Eosinophils # (A) 0.2 k/uL (0-0.7); Eosinophils % (A) 2 %; HCT 31.5 % (34.0-46.0); HGB 10.1 gm/dL (11.4-16.0); Lymphocytes # (A) 1.4 k/uL (1.0-4.8); Lymphocytes % (A) 22 %; MCH 26.5 pg (25.0-35.0); MCV 82.8 fL (80.0-100.0); Mean Platelet Volume 7.5; Monocytes # (A) 0.4 k/uL (0-1.0); Monocytes % (A) 6 %; Neutrophils # (A) 4.4 k/uL (1.3-7.7); Neutrophils % (A) 66 %; Platelet Count 205 k/uL (150-450); RDW 15.4 % (11.5-15.5); WBC 6.6 k/uL (3.8-10.6)
[2018-02-05] MEDS: SODIUM CHLORIDE 0.9% 1,000 ML IV SCH (08:34)
[2018-02-05] MEDS: FAMOTIDINE 20 MG TAB PO SCH (08:34)
[2018-02-05] MEDS: DILTIAZEM CD 120 MG CAP.ER.24H PO SCH (08:35)
[2018-02-05] MEDS: DONEPEZIL 5 MG TAB PO SCH (08:35)
[2018-02-05] MEDS: CITALOPRAM HYDROBROMIDE 20 MG TAB PO SCH (08:35)
[2018-02-05] MEDS: ENOXAPARIN 30 MG/0.3 ML SYRINGE SQ SCH (08:35)
[2018-02-05] MEDS: LOPERAMIDE 2 MG CAP PO SCH (08:37)
--- NOTE | 2018-02-05 11:26 | P.PN ---
Subjective Progress Note Date: 02/05/18 Principal diagnosis: Altered mental status, urinary tract infection This is an 87-year-old female patient who had previously seen Dr. Xie as a primary care physician. She now follows with Dr. Burton I believe. She has a history of hypertension, hyperlipidemia, psoriasis with psoriatic arthritis, glaucoma, dementia. She has has a significant history of chronic right ureter stricture and had a stent placement initially 30 years ago in [place]. She now follows with Dr. Denton for recurrent nephrolithiasis, hematuria, recurrent urinary tract infections. She does have her stent changed out every 6 months or so. She has had multiple cystoscopies and cauterization procedures in the bladder in the past as well. She follows with Dr. Yao regarding the recurrent urinary tract infections. The patient has multiple antibiotic ALLERGIES. She was brought here to the emergency room yesterday with some altered mental status and ongoing urinary tract infections. Her urine is quite turbid with moderate blood and large leukocyte esterase. No leukocytosis. Hemoglobin 10.9. Creatinine 1.50. She has been febrile with a T-max of 100.4. She's been hemodynamically stable. Maintaining good O2 saturations in the upper 90s on room air. She is seen today in consultation on the regular medical floor. She is a poor historian secondary to her dementia. She denies any shortness of breath. She is unclear as to why she is here. She is disoriented to place and time. She has been initiated on meropenem. Acetaminophen for her temps. The patient is seen again today 02/05/2018 in follow-up on the regular medical floor. She is currently resting comfortably in bed. Maintaining good O2 saturations in the 90s on room air. She is currently afebrile. No tachycardia. No tachypnea. Hemodynamically stable. Blood cultures reveal no growth to date. Urine culture is pending. No leukocytosis. Hemoglobin 10.1. Creatinine improved at 0.97. Objective - Vital Signs Vital signs: Vital Signs Temp 98.0 F 02/05/18 07:00 Pulse 60 02/05/18 07:00 Resp 16 02/05/18 07:00 BP 116/67 02/05/18 07:00 Pulse Ox 97 02/05/18 07:00 Intake & Output 02/04/18 02/05/18 02/05/18 18:59 06:59 18:59 Intake Total 650 Output Total 850 Balance 650 -850 Weight 49.895 kg Intake: Intake, IV Titration 650 Amount Meropenem 1 gm In Sodium 100 Chloride 0.9% 100 ml @ 200 mls/hr IVPB Q12H [facility] Rx#:[id number] Sodium Chloride 0.9% 1, 400 000 ml @ 100 mls/hr IV . Q10H [facility] Rx#:[id number] Sodium Chloride 0.9% 1, 150 000 ml @ 50 mls/hr IV . Q20H [facility] Rx#:[id number] Output: Urine 850 Other: Voiding Method Indwelling Catheter Indwelling Catheter - Exam GENERAL EXAM: Frail, cachectic. Alert, disoriented to time and place, comfortable in no apparent distress. HEAD: Normocephalic. EYES: Normal reaction of pupils, equal size. NOSE: Clear with pink turbinates. THROAT: No erythema or exudates. NECK: No masses, no JVD. CHEST: No chest wall deformity. LUNGS: Equal air entry with no crackles, wheeze, rhonchi or dullness. CVS: S1 and S2 normal with no audible murmur, regular rhythm. ABDOMEN: No hepatosplenomegaly, normal bowel sounds, no guarding or rigidity. SPINE: No scoliosis or deformity SKIN: No rashes CENTRAL NERVOUS SYSTEM: No focal deficits, tone is normal in all 4 extremities. EXTREMITIES: There is no peripheral edema. No clubbing, no cyanosis. Peripheral pulses are intact. - Labs CBC & Chem 7: 02/05/18 06:55 02/05/18 06:55 Labs: Abnormal Lab Results - Last 24 Hours (Table) 02/05/18 02/05/18 Range/Units 06:55 06:55 Hgb 10.1 L (11.4-16.0) gm/dL Hct 31.5 L (34.0-46.0) % Chloride 115 H (98-107) mmol/L Carbon Dioxide 18 L (22-30) mmol/L Calcium 7.9 L (8.4-10.2) mg/dL AST 11 L (14-36) U/L Total Protein 5.0 L (6.3-8.2) g/dL Albumin 2.3 L (3.5-5.0) g/dL Microbiology - Last 24 Hours (Table) 02/04/18 16:00 Urine Culture - Preliminary Urine,Catheterized 02/03/18 21:28 Blood Culture - Preliminary Blood No Growth after 24 hours 02/03/18 21:10 Blood Culture - Preliminary Blood No Growth after 24 hours Assessment and Plan Assessment: Impression: #1 Altered mental status secondary to dementia and recurrent urinary tract infections. Previous cultures revealed E. coli, enterococcus faecalis. #2 Acute urinary tract infection, cultures pending. Initiated on meropenem. #3 Febrile illness secondary to above. #4 History of chronic right ureter stricture with stent placement approximately 30 years ago, changed out every 6 months. #5 History of hematuria, nephrolithiasis, hydronephrosis with multiple cystoscopies and cauterization. #6 Hypertension. #7 History of cardiac arrhythmia with previous loop recorder. Currently on diltiazem. #8 Dementia. Currently on Aricept. #9 History of chronic diarrhea treated with Imodium every other day. #10 History of bladder cancer status post tumor removal and BCG instilled. #11 Poor overall functional performance based on the above-mentioned multiple medical comorbidities. Plan: The patient was seen and evaluated by Dr. Xie. No current pulmonary issues. Urine culture is pending. Continue Merrem for now. ID is on the case. Lovenox for DVT prophylaxis. We will follow on as-needed basis. I, the cosigning physician, performed a history & physical examination of the patient. Lungs sounds are clear. Maintaining good O2 saturations in the 90s on room air. I discussed the assessment and plan of care with my nurse practitioner, Kirsten Beckett. I attest to the above note as dictated by her.
--- NOTE | 2018-02-05 14:55 | P.PN ---
Subjective Patient is doing well today. She is awake and alert. No events overnight. Objective - Vital Signs Vital signs: Vital Signs Temp 98.0 F 02/05/18 07:00 Pulse 60 02/05/18 07:00 Resp 16 02/05/18 07:00 BP 116/67 02/05/18 07:00 Pulse Ox 97 02/05/18 07:00 Intake & Output 02/04/18 02/05/18 02/05/18 18:59 06:59 18:59 Intake Total 650 Output Total 850 Balance 650 -850 Weight 49.895 kg Intake: Intake, IV Titration 650 Amount Meropenem 1 gm In Sodium 100 Chloride 0.9% 100 ml @ 200 mls/hr IVPB Q12H [facility] Rx#:[id number] Sodium Chloride 0.9% 1, 400 000 ml @ 100 mls/hr IV . Q10H [facility] Rx#:[id number] Sodium Chloride 0.9% 1, 150 000 ml @ 50 mls/hr IV . Q20H [facility] Rx#:[id number] Output: Urine 850 Other: Voiding Method Indwelling Catheter Indwelling Catheter - Exam General: The patient is awake and alert, in no distress Eye: there is normal conjunctiva bilaterally. Neck: The neck is supple, there is no JVD. Cardiovascular: Normal S1-S2, no S3-S4, no murmurs. Respiratory: Lungs clear to auscultation bilaterally Gastrointestinal: Abdomen is soft, nontender Musculoskeletal: There is no pedal edema. Neurological:. Speech is normal. Skin: Skin is warm and dry - Labs CBC & Chem 7: 02/05/18 06:55 02/05/18 06:55 Labs: Abnormal Lab Results - Last 24 Hours (Table) 02/05/18 02/05/18 Range/Units 06:55 06:55 Hgb 10.1 L (11.4-16.0) gm/dL Hct 31.5 L (34.0-46.0) % Chloride 115 H (98-107) mmol/L Carbon Dioxide 18 L (22-30) mmol/L Calcium 7.9 L (8.4-10.2) mg/dL AST 11 L (14-36) U/L Total Protein 5.0 L (6.3-8.2) g/dL Albumin 2.3 L (3.5-5.0) g/dL Microbiology - Last 24 Hours (Table) 02/04/18 16:00 Urine Culture - Preliminary Urine,Catheterized 02/03/18 21:28 Blood Culture - Preliminary Blood No Growth after 24 hours 02/03/18 21:10 Blood Culture - Preliminary Blood No Growth after 24 hours Assessment and Plan Assessment: 1. Altered mental status changes likely metabolic encephalopathy due to her UTI. 2. Acute urinary tract infection: Started on meropenem. Await urine culture to finalize. Consulted infectious disease 3. Acute kidney injury: May be related to dehydration. Improved with IV fluids. I would discontinue IV fluids and encourage oral hydration. Creatinine back to normal. 4. History of chronic right ureter stricture with stent placement approximately 30 years ago, changed every 6 months by urology 5. History of bladder cancer several years ago status post tumor removal and BCG instilled 6. History of essential hypertension 7. History of chronic diarrhea treated with Imodium every other day 8. Dementia continue with Aricept
--- NOTE | 2018-02-05 21:50 | PN ---
PROGRESS NOTE DATE OF SERVICE: 02/05/2018 REASON FOR FOLLOWUP VISIT: Urinary tract infection. INTERVAL HISTORY: The patient's overall fever pattern has improved. She is afebrile today. She is breathing comfortably; awake, alert. Denies having any chest pain, shortness of breath or cough. No abdominal pain or any diarrhea. EXAMINATION: Blood pressure is 119/56 with a pulse of 76, temperature of 98. She is 96% on room air. General description is an elderly female, lying in bed in no distress. RESPIRATORY SYSTEM: Unlabored breathing. Clear to auscultation anteriorly. HEART: S1, S2. Regular rate and rhythm. ABDOMEN: Soft. No tenderness. LABS: Hemoglobin is 10.1, white count 6.6 with a BUN of 17, creatinine 0.97. Urine culture currently pending. DIAGNOSTIC IMPRESSION AND PLAN: Patient admitted to the hospital with mental status changes. The patient with a positive urinalysis with a concern for urinary tract infection, failing outpatient antibiotic therapy. The patient noted have multiple antibiotic allergies. She is currently covered with meropenem. Will continue while waiting for the sensitivity to finalize. Continue supportive care. MMODL / IJN: [id number] /
[2018-02-06 07:58] LABS: Basophils % (A) 1 %; Eosinophils # (A) 0.2 k/uL (0-0.7); Eosinophils % (A) 3 %; HCT 32.4 % (34.0-46.0); HGB 10.4 gm/dL (11.4-16.0); Lymphocytes # (A) 1.2 k/uL (1.0-4.8); Lymphocytes % (A) 20 %; MCH 26.5 pg (25.0-35.0); MCV 82.8 fL (80.0-100.0); Mean Platelet Volume 7.3; Monocytes # (A) 0.4 k/uL (0-1.0); Monocytes % (A) 7 %; Neutrophils % (A) 66 %; Platelet Count 238 k/uL (150-450); RBC 3.91 m/uL (3.80-5.40); RDW 15.4 % (11.5-15.5)
[2018-02-06 08:15] LABS: Albumin 2.3 g/dL (3.5-5.0)
[2018-02-06 08:16] LABS: Calcium 8.3 mg/dL (8.4-10.2); Potassium 4.4 mmol/L (3.5-5.1); Total Bilirubin 0.2 mg/dL (0.2-1.3)
[2018-02-06 08:27] VITALS: RESP 16
[2018-02-06] MEDS: CITALOPRAM HYDROBROMIDE 20 MG TAB PO SCH (08:53)
[2018-02-06] MEDS: ENOXAPARIN 30 MG/0.3 ML SYRINGE SQ SCH (08:53)
[2018-02-06] MEDS: FAMOTIDINE 20 MG TAB PO SCH (08:53)
[2018-02-06] MEDS: DONEPEZIL 5 MG TAB PO SCH (08:53)
[2018-02-06] MEDS: DILTIAZEM CD 120 MG CAP.ER.24H PO SCH (08:53)
[2018-02-06] MEDS: LOPERAMIDE 2 MG CAP PO SCH (08:56)
[2018-02-06] MEDS: MEROPENEM 1 GM in SODIUM CHLORIDE 0.9% 100 ML IVPB SCH ×2 (12:25→23:24)
--- NOTE | 2018-02-06 15:14 | P.PN ---
Subjective Patient is doing well today. No events overnight. Objective - Vital Signs Vital signs: Vital Signs Temp 97.3 F L 02/06/18 07:00 Pulse 63 02/06/18 07:00 Resp 16 02/06/18 07:00 BP 116/66 02/06/18 07:00 Pulse Ox 97 02/06/18 07:00 Intake & Output 02/05/18 02/06/18 02/06/18 18:59 06:59 18:59 Intake Total 400 Balance 400 Intake: Oral 400 Other: Voiding Method Indwelling Catheter Diaper Diaper Incontinent Incontinent # Voids 3 1 - Exam General: The patient is awake and alert, in no distress Eye: there is normal conjunctiva bilaterally. Neck: The neck is supple, there is no JVD. Cardiovascular: Normal S1-S2, no S3-S4, no murmurs. Respiratory: Lungs clear to auscultation bilaterally Gastrointestinal: Abdomen is soft, nontender Musculoskeletal: There is no pedal edema. Neurological:. Speech is normal. Skin: Skin is warm and dry - Labs CBC & Chem 7: 02/06/18 07:36 02/06/18 07:36 Labs: Abnormal Lab Results - Last 24 Hours (Table) 02/06/18 02/06/18 Range/Units 07:36 07:36 Hgb 10.4 L (11.4-16.0) gm/dL Hct 32.4 L (34.0-46.0) % Chloride 114 H (98-107) mmol/L Carbon Dioxide 19 L (22-30) mmol/L BUN 24 H (7-17) mg/dL Creatinine 1.11 H (0.52-1.04) mg/dL Calcium 8.3 L (8.4-10.2) mg/dL AST 9 L (14-36) U/L Total Protein 5.0 L (6.3-8.2) g/dL Albumin 2.3 L (3.5-5.0) g/dL Microbiology - Last 24 Hours (Table) 02/03/18 21:28 Blood Culture - Preliminary Blood No Growth after 48 hours 02/03/18 21:10 Blood Culture - Preliminary Blood No Growth after 48 hours 02/04/18 16:00 Urine Culture - Final Urine,Catheterized Assessment and Plan Assessment: 1. Altered mental status changes likely metabolic encephalopathy due to her UTI. 2. Acute urinary tract infection: Started on meropenem. Await urine culture to finalize. Consulted infectious disease 3. Acute kidney injury: May be related to dehydration. Improved with IV fluids. I would discontinue IV fluids and encourage oral hydration. Creatinine back to normal. 4. History of chronic right ureter stricture with stent placement approximately 30 years ago, changed every 6 months by urology 5. History of bladder cancer several years ago status post tumor removal and BCG instilled 6. History of essential hypertension 7. History of chronic diarrhea treated with Imodium every other day 8. Dementia continue with Aricept
--- NOTE | 2018-02-06 16:42 | P.PN ---
Subjective Progress Note Date: 02/06/18 Principal diagnosis: Altered mental status and urinary tract infection This is an 87-year-old female patient who had previously seen Dr. Xie as a primary care physician. She now follows with Dr. Burton I believe. She has a history of hypertension, hyperlipidemia, psoriasis with psoriatic arthritis, glaucoma, dementia. She has has a significant history of chronic right ureter stricture and had a stent placement initially 30 years ago in [place]. She now follows with Dr. Denton for recurrent nephrolithiasis, hematuria, recurrent urinary tract infections. She does have her stent changed out every 6 months or so. She has had multiple cystoscopies and cauterization procedures in the bladder in the past as well. She follows with Dr. Yao regarding the recurrent urinary tract infections. The patient has multiple antibiotic ALLERGIES. She was brought here to the emergency room yesterday with some altered mental status and ongoing urinary tract infections. Her urine is quite turbid with moderate blood and large leukocyte esterase. No leukocytosis. Hemoglobin 10.9. Creatinine 1.50. She has been febrile with a T-max of 100.4. She's been hemodynamically stable. Maintaining good O2 saturations in the upper 90s on room air. She is seen today in consultation on the regular medical floor. She is a poor historian secondary to her dementia. She denies any shortness of breath. She is unclear as to why she is here. She is disoriented to place and time. She has been initiated on meropenem. Acetaminophen for her temps. The patient is seen again today 02/05/2018 in follow-up on the regular medical floor. She is currently resting comfortably in bed. Maintaining good O2 saturations in the 90s on room air. She is currently afebrile. No tachycardia. No tachypnea. Hemodynamically stable. Blood cultures reveal no growth to date. Urine culture is pending. No leukocytosis. Hemoglobin 10.1. Creatinine improved at 0.97. Reevaluated today on 02/06/2018, patient seems to be very comfortable in bed, in no form of distress, however her mental status is basically about the same. No major events happening overnight, daughter is at bedside. CBC is normal and basic metabolic profile is normal. Renal functioning was noted BUN 24 creatinine is 1.11. Urine culture is negative. Objective - Vital Signs Vital signs: Vital Signs Temp 99.1 F 02/06/18 15:00 Pulse 68 02/06/18 15:00 Resp 16 02/06/18 15:00 BP 112/69 02/06/18 15:00 Pulse Ox 98 02/06/18 15:00 Intake & Output 02/05/18 02/06/18 02/06/18 18:59 06:59 18:59 Intake Total 400 Balance 400 Intake: Oral 400 Other: Voiding Method Indwelling Catheter Diaper Diaper Incontinent Incontinent # Voids 3 1 3 - Exam GENERAL EXAM: Frail, cachectic. Alert, disoriented to time and place, comfortable in no apparent distress. HEAD: Normocephalic. EYES: Normal reaction of pupils, equal size. NOSE: Clear with pink turbinates. THROAT: No erythema or exudates. NECK: No masses, no JVD. CHEST: No chest wall deformity. LUNGS: Equal air entry with no crackles, wheeze, rhonchi or dullness. CVS: S1 and S2 normal with no audible murmur, regular rhythm. ABDOMEN: No hepatosplenomegaly, normal bowel sounds, no guarding or rigidity. SPINE: No scoliosis or deformity SKIN: No rashes CENTRAL NERVOUS SYSTEM: No focal deficits, tone is normal in all 4 extremities. EXTREMITIES: There is no peripheral edema. No clubbing, no cyanosis. Peripheral pulses are intact. - Labs CBC & Chem 7: 02/06/18 07:36 02/06/18 07:36 Labs: Abnormal Lab Results - Last 24 Hours (Table) 02/06/18 02/06/18 Range/Units 07:36 07:36 Hgb 10.4 L (11.4-16.0) gm/dL Hct 32.4 L (34.0-46.0) % Chloride 114 H (98-107) mmol/L Carbon Dioxide 19 L (22-30) mmol/L BUN 24 H (7-17) mg/dL Creatinine 1.11 H (0.52-1.04) mg/dL Calcium 8.3 L (8.4-10.2) mg/dL AST 9 L (14-36) U/L Total Protein 5.0 L (6.3-8.2) g/dL Albumin 2.3 L (3.5-5.0) g/dL Microbiology - Last 24 Hours (Table) 03/15/18 21:28 Blood Culture - Preliminary Blood No Growth after 48 hours 02/03/18 21:10 Blood Culture - Preliminary Blood No Growth after 48 hours 02/04/18 16:00 Urine Culture - Final Urine,Catheterized Assessment and Plan Assessment: #1 Altered mental status secondary to dementia and recurrent urinary tract infections. Previous cultures revealed E. coli, enterococcus faecalis. #2 Acute urinary tract infection, cultures pending. Initiated on meropenem. #3 Febrile illness secondary to above. #4 History of chronic right ureter stricture with stent placement approximately 30 years ago, changed out every 6 months. #5 History of hematuria, nephrolithiasis, hydronephrosis with multiple cystoscopies and cauterization. #6 Hypertension. #7 History of cardiac arrhythmia with previous loop recorder. Currently on diltiazem. #8 Dementia. Currently on Aricept. #9 History of chronic diarrhea treated with Imodium every other day. #10 History of bladder cancer status post tumor removal and BCG instilled. #11 Poor overall functional performance based on the above-mentioned multiple medical comorbidities. Recommendation: Continue present treatment plan, consider discharge planning however the antibiotics to be given would have to be addressed by the infectious disease physician on the case, patient has multiple ALLERGIES to different antibiotics, and it is difficult to decide on specific antibiotic to be given. May even require a PICC line, but at this point the cultures are negative. She may not even need to be on an antibiotics however this decision will be made by the infectious disease physician on the case. Time with Patient: Less than 30
[2018-02-06 18:22] LABS: Appearance,Urine Cloudy (Clear); Bacteria,Urine Few /hpf; Bilirubin,Urine Negative (Negative); Blood,Urine Small (Negative); Budding Yeast,Urine Many /hpf; Color,Urine Light Yellow; Glucose,Urine (UA) Negative (Negative); Ketones,Urine Negative (Negative); Leukocyte Esterase,Urine Large (Negative); Nitrite,Urine Negative (Negative); PH, Urine 6.5 (5.0-8.0); Protein,Urine 1+ (Negative); Specific Gravity,Urine 1.011 (1.001-1.035); Urobilinogen,Urine <2.0 mg/dL (<2.0); WBC,Urine >182 /hpf (0-5)
--- NOTE | 2018-02-06 23:09 | PN ---
PROGRESS NOTE DATE OF SERVICE: 02/06/2018. REASON FOR FOLLOWUP: Urinary tract infection. INTERVAL HISTORY: The patient did have a low grade fever last night of 100.8. She is afebrile since then. The patient's Conroy has been discontinued and RN did mention she was able to urinate with no concern for underlying retention. The patient denies having any chest pain, shortness of breath, or any abdominal pain. EXAMINATION: Blood pressure 112/69 with a pulse of 68, temperature 99.1, she is 98%. GENERAL DESCRIPTION: An elderly female, lying in bed in no distress. RESPIRATORY SYSTEM: Unlabored breathing. Clear to auscultation anteriorly. HEART: S1, S2. Regular rate and rhythm. ABDOMEN: Soft, nontender. EXTREMITIES: : No edema of the feet. LABS: Hemoglobin 10.4, white count 6.0, BUN of 24, creatinine 1.1. The urine cultures came back negative. Blood cultures negative. DIAGNOSTIC IMPRESSION AND PLAN: Patient admitted to the hospital with mental status changes with concern for possible urinary tract infection, failing outpatient Keflex and Diflucan therapy. She has been on meropenem because of her multiple antibiotic allergies. All culture came back negative. Did have a low-grade fever last night. Has been advised to get another UA and culture with straight catheterization and if that is negative, no further workup. However, if positive, we will wait for those cultures to finalize to determine discharge antibiotics. Continue supportive care. MMODL / IJN: [id number] /
[2018-02-07 07:38] LABS: Basophils % (A) 0 %; Eosinophils # (A) 0.2 k/uL (0-0.7); Eosinophils % (A) 3 %; HCT 31.9 % (34.0-46.0); HGB 10.3 gm/dL (11.4-16.0); Lymphocytes # (A) 1.1 k/uL (1.0-4.8); Lymphocytes % (A) 19 %; MCH 26.5 pg (25.0-35.0); MCHC 32.4 g/dL (31.0-37.0); MCV 81.9 fL (80.0-100.0); Mean Platelet Volume 7.3; Monocytes # (A) 0.4 k/uL (0-1.0); Monocytes % (A) 7 %; Neutrophils # (A) 3.9 k/uL (1.3-7.7); Neutrophils % (A) 67 %; Platelet Count 252 k/uL (150-450); RBC 3.89 m/uL (3.80-5.40); RDW 15.4 % (11.5-15.5); WBC 5.9 k/uL (3.8-10.6)
[2018-02-07] MEDS: DONEPEZIL 5 MG TAB PO SCH (07:43)
[2018-02-07] MEDS: ENOXAPARIN 30 MG/0.3 ML SYRINGE SQ SCH (07:43)
[2018-02-07] MEDS: CITALOPRAM HYDROBROMIDE 20 MG TAB PO SCH (07:43)
[2018-02-07] MEDS: FAMOTIDINE 20 MG TAB PO SCH (07:43)
[2018-02-07] MEDS: DILTIAZEM CD 120 MG CAP.ER.24H PO SCH (07:43)
[2018-02-07] MEDS: ASPIRIN 81 MG PO SCH (07:44)
[2018-02-07 07:58] LABS: Albumin 2.5 g/dL (3.5-5.0); Calcium 8.5 mg/dL (8.4-10.2); Potassium 4.3 mmol/L (3.5-5.1); Total Bilirubin 0.2 mg/dL (0.2-1.3); Total Protein 5.2 g/dL (6.3-8.2)
[2018-02-07] MEDS ORDERED: FLUCONAZOLE 100 MG TAB PO ONE (10:30)
--- NOTE | 2018-02-07 12:46 | P.PN ---
Subjective Progress Note Date: 02/07/18 This is a 87-year-old female with a known history of dementia, recurrent UTI, bladder cancer, chronic kidney disease, atrial fibrillation, hyperlipidemia, kidney stones and hypertension. She also has a history of chronic right ureter stricture and has a stent placed initially 30 years ago at [place]. She follows with Dr. Frye for her recurrent nephrolithiasis and recurrent UTIs. She has a stent changed every 6 months or so. Patient is resident at the [facility]. Apparently a week ago patient will started having very foul smelling urine was placed on Keflex and also given a prescription for Diflucan by urology. But after treatment of the urinary tract infection patient continued to have symptoms. Again foul smelling urine started to have altered mental status very confused generalized weakness and decrease in appetite and decrease in activity. She had a temp of 100.4 on admission. And urinalysis was positive for UTI. She was placed on meropenem. Consult was placed for Dr. Yao for further antibiotic recommendations. Patient does have multiple ALLERGIES to antibiotics. She also has issues with chronic diarrhea and incontinence of both urine and stool likely contributing to her recurrent UTIs. Currently on Lomotil. Which she has been newly started and the daughter-in- law has reported improvement in patient's bowel movements. Patient is currently alert and orientated to her name only. She reports no pain. Denies any chest pain or shortness breath. Denies any nausea or vomiting. Patient had a Conroy catheter inserted in the ER yesterday apparently due to her issues with incontinence. Dr. Xie consulted because patient is known to him and he had been their PCP. 02/07/2018 patient lying in bed comfortably. Has had no further fevers. Urine culture pending. Infectious disease following. Awaiting post void residual results. Conroy catheter discontinued during the weekend. Meropenem added by infectious disease. Objective - Vital Signs Vital signs: Vital Signs Temp 99.3 F 02/07/18 07:00 Pulse 64 02/07/18 07:00 Resp 16 02/07/18 07:00 BP 135/76 02/07/18 07:00 Pulse Ox 97 02/07/18 07:00 Intake & Output 02/06/18 02/07/18 02/07/18 18:59 06:59 18:59 Intake Total 690 Balance 690 Intake: Intake, IV Titration 100 Amount Meropenem 1 gm In Sodium 100 Chloride 0.9% 100 ml @ 200 mls/hr IVPB Q12H [facility] Rx#:[id number] Oral 590 Other: Voiding Method Diaper Diaper Diaper Incontinent Incontinent # Voids 3 2 - Exam Head normocephalic Neck supple Lungs clear to auscultation bilaterally no wheezing or crackles Heart regular rate and rhythm S1-S2, no rub or gallop Abdomen is soft nontender nondistended positive bowel sounds no hepatosplenomegaly Extremities no edema Neuro alert and orientated to 1 Name only - Labs CBC & Chem 7: 02/07/18 07:04 02/07/18 07:04 Labs: Abnormal Lab Results - Last 24 Hours (Table) 02/06/18 02/07/18 02/07/18 Range/Units 17:30 07:04 07:04 Hgb 10.3 L (11.4-16.0) gm/dL Hct 31.9 L (34.0-46.0) % Chloride 111 H (98-107) mmol/L BUN 25 H (7-17) mg/dL Creatinine 1.07 H (0.52-1.04) mg/dL AST 9 L (14-36) U/L Total Protein 5.2 L (6.3-8.2) g/dL Albumin 2.5 L (3.5-5.0) g/dL Urine Appearance Cloudy H (Clear) Urine Protein 1+ H (Negative) Urine Blood Small H (Negative) Ur Leukocyte Esterase Large H (Negative) Urine WBC >182 H (0-5) /hpf Urine WBC Clumps Many H (None) /hpf Urine Bacteria Few H (None) /hpf Urine Yeast (Budding) Many H (None) /hpf Microbiology - Last 24 Hours (Table) 02/03/18 21:28 Blood Culture - Preliminary Blood No Growth after 72 hours 02/03/18 21:10 Blood Culture - Preliminary Blood No Growth after 72 hours 02/06/18 17:30 Urine Culture - Preliminary Urine,Catheterized Assessment and Plan Assessment: 1. Altered mental status changes likely metabolic encephalopathy due to her UTI. 2. Acute urinary tract infection: Started on meropenem. Await urine culture. Consult infectious disease. Check postvoid residuals to monitor for any urinary retention 3. Acute on chronic kidney disease, stage III: Improved with IV fluids 4. History of chronic right ureter stricture with stent placement approximately 30 years ago, changed every 6 months by urology 5. History of bladder cancer several years ago status post tumor removal and BCG instilled 6. History of essential hypertension 7. History of chronic diarrhea treated with Imodium every other day 8. Dementia continue with Aricept GI prophylaxis Pepcid and DVT prophylaxis Lovenox Possible discharge tomorrow I performed an examination of the patient and discussed their management with the physician Grapple Crew Leader. I have reviewed the Physician Grapple Crew Leader's notes and agree with the documented findings and plan of care
--- NOTE | 2018-02-07 15:19 | P.PN ---
Subjective Progress Note Date: 02/07/18 Principal diagnosis: Altered mental status and urinary tract infection This is an 87-year-old female patient who had previously seen Dr. Xie as a primary care physician. She now follows with Dr. Burton I believe. She has a history of hypertension, hyperlipidemia, psoriasis with psoriatic arthritis, glaucoma, dementia. She has has a significant history of chronic right ureter stricture and had a stent placement initially 30 years ago in [place]. She now follows with Dr. Denton for recurrent nephrolithiasis, hematuria, recurrent urinary tract infections. She does have her stent changed out every 6 months or so. She has had multiple cystoscopies and cauterization procedures in the bladder in the past as well. She follows with Dr. Yao regarding the recurrent urinary tract infections. The patient has multiple antibiotic ALLERGIES. She was brought here to the emergency room yesterday with some altered mental status and ongoing urinary tract infections. Her urine is quite turbid with moderate blood and large leukocyte esterase. No leukocytosis. Hemoglobin 10.9. Creatinine 1.50. She has been febrile with a T-max of 100.4. She's been hemodynamically stable. Maintaining good O2 saturations in the upper 90s on room air. She is seen today in consultation on the regular medical floor. She is a poor historian secondary to her dementia. She denies any shortness of breath. She is unclear as to why she is here. She is disoriented to place and time. She has been initiated on meropenem. Acetaminophen for her temps. The patient is seen again today 02/05/2018 in follow-up on the regular medical floor. She is currently resting comfortably in bed. Maintaining good O2 saturations in the 90s on room air. She is currently afebrile. No tachycardia. No tachypnea. Hemodynamically stable. Blood cultures reveal no growth to date. Urine culture is pending. No leukocytosis. Hemoglobin 10.1. Creatinine improved at 0.97. Reevaluated today on 02/06/2018, patient seems to be very comfortable in bed, in no form of distress, however her mental status is basically about the same. No major events happening overnight, daughter is at bedside. CBC is normal and basic metabolic profile is normal. Renal functioning was noted BUN 24 creatinine is 1.11. Urine culture is negative. On 02/07/2018 patient seen in follow-up medical surgical floor. She is resting comfortably in bed, denies any acute distress. Her daughter is at the bedside and she states that her mother's mentation is improved, patient appears to be more alert today, and responds appropriately. She also reports the patient seems to be a bit stronger today, was able to sit up in the chair for about 20- 25 minutes, tolerated activity fairly well. Denies any fever, denies any chills. Denies any dyspnea, lung sounds are clear to auscultation, no cough, or congestion noted. Her appetite remains poor, but improving, she is accepting oral supplemental drinks. No fever in the last 24 hours, she remains hemodynamically stable, currently on room air with O2 sat at 97%. Blood and urine cultures remain negative. However repeat urinalysis from yesterday still shows significant pyuria, and yeast. ID service is following, patient had been treated with IV meropenem, which is now discontinued. Patient was given 1 dose of oral Diflucan. Patient's Conroy has been discontinued, bladder scan will be done today, to rule out underlying retention. Repeat urine culture is pending at this time, awaiting results of the culture to determine discharge antibiotics. Objective - Vital Signs Vital signs: Vital Signs Temp 99.3 F 02/07/18 07:00 Pulse 64 02/07/18 07:00 Resp 16 02/07/18 07:00 BP 135/76 02/07/18 07:00 Pulse Ox 97 02/07/18 07:00 Intake & Output 02/06/18 02/07/18 02/07/18 18:59 06:59 18:59 Intake Total 690 410 Output Total 120 Balance 690 290 Intake: Intake, IV Titration 100 Amount Meropenem 1 gm In Sodium 100 Chloride 0.9% 100 ml @ 200 mls/hr IVPB Q12H [facility] Rx#:[id number] Oral 590 410 Output: Post Void Residual 120 Other: Voiding Method Diaper Diaper Diaper Incontinent Incontinent # Voids 3 2 2 - Exam GENERAL EXAM: Alert, confused, pleasant, 87-year-old white female comfortable in no apparent distress. HEAD: Normocephalic/atraumatic. EYES: Normal reaction of pupils, equal size. Conjunctiva pink, sclera white. NOSE: Clear with pink turbinates. THROAT: No erythema or exudates. NECK: No masses, no JVD, no thyroid enlargement, no adenopathy. CHEST: No chest wall deformity. Symmetrical expansion. LUNGS: Equal air entry with no crackles, wheeze, rhonchi or dullness. CVS: Regular rate and rhythm, normal S1 and S2, no gallops, no murmurs, no rubs ABDOMEN: Soft, nontender. No hepatosplenomegaly, normal bowel sounds, no guarding or rigidity. EXTREMITIES: No clubbing, no edema, no cyanosis, 2+ pulses and upper and lower extremities. MUSCULOSKELETAL: Muscle strength and tone normal. SPINE: No scoliosis or deformity SKIN: No rashes CENTRAL NERVOUS SYSTEM: Alert and oriented -1. No focal deficits, tone is normal in all 4 extremities. PSYCHIATRIC: Alert and oriented -1. Appropriate affect. Intact judgment and insight. - Labs CBC & Chem 7: 02/07/18 07:04 02/07/18 07:04 Labs: Abnormal Lab Results - Last 24 Hours (Table) 02/06/18 02/07/18 02/07/18 Range/Units 17:30 07:04 07:04 Hgb 10.3 L (11.4-16.0) gm/dL Hct 31.9 L (34.0-46.0) % Chloride 111 H (98-107) mmol/L BUN 25 H (7-17) mg/dL Creatinine 1.07 H (0.52-1.04) mg/dL AST 9 L (14-36) U/L Total Protein 5.2 L (6.3-8.2) g/dL Albumin 2.5 L (3.5-5.0) g/dL Urine Appearance Cloudy H (Clear) Urine Protein 1+ H (Negative) Urine Blood Small H (Negative) Ur Leukocyte Esterase Large H (Negative) Urine WBC >182 H (0-5) /hpf Urine WBC Clumps Many H (None) /hpf Urine Bacteria Few H (None) /hpf Urine Yeast (Budding) Many H (None) /hpf Microbiology - Last 24 Hours (Table) 02/03/18 21:28 Blood Culture - Preliminary Blood No Growth after 72 hours 02/03/18 21:10 Blood Culture - Preliminary Blood No Growth after 72 hours 02/06/18 17:30 Urine Culture - Preliminary Urine,Catheterized Assessment and Plan Plan: Assessment: #1 Altered mental status secondary to dementia and recurrent urinary tract infections. Previous cultures revealed E. coli, enterococcus faecalis. #2 Acute urinary tract infection, cultures pending. Initiated on meropenem. #3 Febrile illness secondary to above. #4 History of chronic right ureter stricture with stent placement approximately 30 years ago, changed out every 6 months. #5 History of hematuria, nephrolithiasis, hydronephrosis with multiple cystoscopies and cauterization. #6 Hypertension. #7 History of cardiac arrhythmia with previous loop recorder. Currently on diltiazem. #8 Dementia. Currently on Aricept. #9 History of chronic diarrhea treated with Imodium every other day. #10 History of bladder cancer status post tumor removal and BCG instilled. #11 Poor overall functional performance based on the above-mentioned multiple medical comorbidities. Recommendation: Continue current plan of care, continue monitoring vital signs, fever pattern. Awaiting the results of the repeat urine culture, patient is currently off the meropenem. Patient's daughter states patient's mentation is improving, patient is more awake, alert and responsive. Appetite remains poor, but improving. Patient has been afebrile in the last 24 hours. Continue GI and DVT prophylaxis. I performed a history & physical examination of the patient and discussed their management with my nurse practitioner, Chen Galo. I reviewed the nurse practitioner's note and agree with the documented findings and plan of care. Lung sounds are positive for clear. The findings and the impression was discussed with the patient. I attest to the documentation by the nurse practitioner. Time with Patient: Less than 30
--- NOTE | 2018-02-07 23:30 | PN ---
PROGRESS NOTE DATE OF SERVICE: 02/07/2018 REASON FOR FOLLOWUP: Recurrent urinary tract infection. INTERVAL HISTORY: The patient is afebrile. She is breathing comfortably. No chest pain, shortness of breath or cough. No abdominal pain or any diarrhea. PHYSICAL EXAMINATION: Blood pressure is 109/68 with a pulse of 68, temperature of 98.9. She is 96% on room air. General description is an elderly female lying in bed in no distress. RESPIRATORY SYSTEM: Unlabored breathing. Clear to auscultation anteriorly. HEART: S1, S2. Regular rate and rhythm. ABDOMEN: Soft. No tenderness. EXTREMITIES: No edema of the feet. LABS: Hemoglobin is 10.3, white count of 5.9, BUN of 25, creatinine 1.07. Repeat urine yesterday obtained with straight catheterization shows many yeast. DIAGNOSTIC IMPRESSION AND PLAN: Patient with recurrent urinary tract infection, admitted to hospital with mental status changes thought to be related to urinary tract infection; however, the urine cultures have been negative. Another UA was obtained with straight catheterization showing significant yeast. Diflucan has been added while waiting for the final identification of this pathogen. Daughter has many questions regarding her recurrent UTIs. However, questions have been answered. Will have to make sure no evidence of any urinary retention that may be contributing to some of these recurrent UTIs. Continue with supportive care. MMODL / IJN: [id number] /
[2018-02-08 07:33] LABS: Basophils % (A) 0 %; Eosinophils # (A) 0.3 k/uL (0-0.7); Eosinophils % (A) 4 %; HCT 33.1 % (34.0-46.0); HGB 10.8 gm/dL (11.4-16.0); Lymphocytes # (A) 1.5 k/uL (1.0-4.8); Lymphocytes % (A) 22 %; MCH 26.5 pg (25.0-35.0); MCHC 32.7 g/dL (31.0-37.0); MCV 81.1 fL (80.0-100.0); Mean Platelet Volume 6.8; Monocytes # (A) 0.4 k/uL (0-1.0); Monocytes % (A) 6 %; Neutrophils # (A) 4.4 k/uL (1.3-7.7); Neutrophils % (A) 65 %; Platelet Count 312 k/uL (150-450); RBC 4.08 m/uL (3.80-5.40); RDW 14.8 % (11.5-15.5); WBC 6.9 k/uL (3.8-10.6)
[2018-02-08 07:54] LABS: Albumin 2.7 g/dL (3.5-5.0); Calcium 8.8 mg/dL (8.4-10.2); Potassium 4.7 mmol/L (3.5-5.1); Total Bilirubin 0.2 mg/dL (0.2-1.3); Total Protein 5.5 g/dL (6.3-8.2)
[2018-02-08] MEDS: CITALOPRAM HYDROBROMIDE 20 MG TAB PO SCH (08:25)
[2018-02-08] MEDS: ENOXAPARIN 30 MG/0.3 ML SYRINGE SQ SCH (08:26)
[2018-02-08] MEDS: FAMOTIDINE 20 MG TAB PO SCH (08:26)
[2018-02-08] MEDS: DILTIAZEM CD 120 MG CAP.ER.24H PO SCH (08:26)
[2018-02-08] MEDS: DONEPEZIL 5 MG TAB PO SCH (08:26)
[2018-02-08] MEDS: LOPERAMIDE 2 MG CAP PO SCH (08:35)
--- NOTE | 2018-02-08 12:58 | P.PN ---
Subjective Progress Note Date: 02/08/18 Principal diagnosis: Altered mental status and urinary tract infection This is an 87-year-old female patient who had previously seen Dr. Xie as a primary care physician. She now follows with Dr. Burton I believe. She has a history of hypertension, hyperlipidemia, psoriasis with psoriatic arthritis, glaucoma, dementia. She has has a significant history of chronic right ureter stricture and had a stent placement initially 30 years ago in [place]. She now follows with Dr. Denton for recurrent nephrolithiasis, hematuria, recurrent urinary tract infections. She does have her stent changed out every 6 months or so. She has had multiple cystoscopies and cauterization procedures in the bladder in the past as well. She follows with Dr. Yao regarding the recurrent urinary tract infections. The patient has multiple antibiotic ALLERGIES. She was brought here to the emergency room yesterday with some altered mental status and ongoing urinary tract infections. Her urine is quite turbid with moderate blood and large leukocyte esterase. No leukocytosis. Hemoglobin 10.9. Creatinine 1.50. She has been febrile with a T-max of 100.4. She's been hemodynamically stable. Maintaining good O2 saturations in the upper 90s on room air. She is seen today in consultation on the regular medical floor. She is a poor historian secondary to her dementia. She denies any shortness of breath. She is unclear as to why she is here. She is disoriented to place and time. She has been initiated on meropenem. Acetaminophen for her temps. The patient is seen again today 02/05/2018 in follow-up on the regular medical floor. She is currently resting comfortably in bed. Maintaining good O2 saturations in the 90s on room air. She is currently afebrile. No tachycardia. No tachypnea. Hemodynamically stable. Blood cultures reveal no growth to date. Urine culture is pending. No leukocytosis. Hemoglobin 10.1. Creatinine improved at 0.97. Reevaluated today on 02/06/2018, patient seems to be very comfortable in bed, in no form of distress, however her mental status is basically about the same. No major events happening overnight, daughter is at bedside. CBC is normal and basic metabolic profile is normal. Renal functioning was noted BUN 24 creatinine is 1.11. Urine culture is negative. On 02/07/2018 patient seen in follow-up medical surgical floor. She is resting comfortably in bed, denies any acute distress. Her daughter is at the bedside and she states that her mother's mentation is improved, patient appears to be more alert today, and responds appropriately. She also reports the patient seems to be a bit stronger today, was able to sit up in the chair for about 20- 25 minutes, tolerated activity fairly well. Denies any fever, denies any chills. Denies any dyspnea, lung sounds are clear to auscultation, no cough, or congestion noted. Her appetite remains poor, but improving, she is accepting oral supplemental drinks. No fever in the last 24 hours, she remains hemodynamically stable, currently on room air with O2 sat at 97%. Blood and urine cultures remain negative. However repeat urinalysis from yesterday still shows significant pyuria, and yeast. ID service is following, patient had been treated with IV meropenem, which is now discontinued. Patient was given 1 dose of oral Diflucan. Patient's Conroy has been discontinued, bladder scan will be done today, to rule out underlying retention. Repeat urine culture is pending at this time, awaiting results of the culture to determine discharge antibiotics. On 02/08/2018 patient seen in follow-up on medical surgical floor. She denies any fever or chills. She is resting in bed, but easily arousable to verbal stimuli. Denies any dyspnea, denies any chest pain. Her vitals have been stable, she has been afebrile, she is on room air with pulse ox at 95%. Her daughter is at the bedside. Follow-up urine culture from 02/06/2018 did not show any growth. Patient's meropenem has been discontinued per ID service recommendation. Patient was given 1 dose of oral Diflucan 200 mg yesterday on 02/07/2018. Discharge plan at this time is for the patient to return back to the [facility] possibly today or tomorrow. Objective - Vital Signs Vital signs: Vital Signs Temp 99 F 02/08/18 07:00 Pulse 60 02/08/18 07:00 Resp 16 02/08/18 07:00 BP 123/75 02/08/18 07:00 Pulse Ox 95 02/08/18 07:00 Intake & Output 02/07/18 02/08/1818 18:59 06:59 18:59 Intake Total 410 590 Output Total 120 Balance 290 590 Weight 49.895 kg 49.895 kg Intake: Oral 410 590 Output: Urine 0 Post Void Residual 120 Other: Voiding Method Diaper Diaper Incontinent # Voids 2 2 - Exam GENERAL EXAM: Alert, confused, pleasant, 87-year-old white female comfortable in no apparent distress. HEAD: Normocephalic/atraumatic. EYES: Normal reaction of pupils, equal size. Conjunctiva pink, sclera white. NOSE: Clear with pink turbinates. THROAT: No erythema or exudates. NECK: No masses, no JVD, no thyroid enlargement, no adenopathy. CHEST: No chest wall deformity. Symmetrical expansion. LUNGS: Equal air entry with no crackles, wheeze, rhonchi or dullness. CVS: Regular rate and rhythm, normal S1 and S2, no gallops, no murmurs, no rubs ABDOMEN: Soft, nontender. No hepatosplenomegaly, normal bowel sounds, no guarding or rigidity. EXTREMITIES: No clubbing, no edema, no cyanosis, 2+ pulses and upper and lower extremities. MUSCULOSKELETAL: Muscle strength and tone normal. SPINE: No scoliosis or deformity SKIN: No rashes CENTRAL NERVOUS SYSTEM: Alert and oriented -1. No focal deficits, tone is normal in all 4 extremities. PSYCHIATRIC: Alert and oriented -1. Appropriate affect. Intact judgment and insight. - Labs CBC & Chem 7: 02/08/18 07:17 02/08/18 07:17 Labs: Abnormal Lab Results - Last 24 Hours (Table) 02/08/18 02/08/18 Range/Units 07:17 07:17 Hgb 10.8 L (11.4-16.0) gm/dL Hct 33.1 L (34.0-46.0) % Chloride 110 H (98-107) mmol/L BUN 38 H (7-17) mg/dL Creatinine 1.17 H (0.52-1.04) mg/dL AST 11 L (14-36) U/L Total Protein 5.5 L (6.3-8.2) g/dL Albumin 2.7 L (3.5-5.0) g/dL Microbiology - Last 24 Hours (Table) 02/03/18 21:28 Blood Culture - Preliminary Blood No Growth after 96 hours 02/03/18 21:10 Blood Culture - Preliminary Blood No Growth after 96 hours 02/06/18 17:30 Urine Culture - Final Urine,Catheterized Assessment and Plan Plan: Assessment: #1 Altered mental status secondary to dementia and recurrent urinary tract infections. Previous cultures revealed E. coli, enterococcus faecalis. #2 Acute urinary tract infection, urine cultures negative this admission. Was treated with meropenem. #3 Febrile illness secondary to above, resolved #4 History of chronic right ureter stricture with stent placement approximately 30 years ago, changed out every 6 months. #5 History of hematuria, nephrolithiasis, hydronephrosis with multiple cystoscopies and cauterization. #6 Hypertension. #7 History of cardiac arrhythmia with previous loop recorder. Currently on diltiazem. #8 Dementia. Currently on Aricept. #9 History of chronic diarrhea treated with Imodium every other day. #10 History of bladder cancer status post tumor removal and BCG instilled. #11 Poor overall functional performance based on the above-mentioned multiple medical comorbidities. Recommendation: Follow-up urine culture remains negative, patient's meropenem has been discontinued. Patient has received 1 dose of oral Diflucan 200 mg yesterday on 02/07/2018. She remains afebrile, denies any chills. Hemodynamically stable. No specific complaints, vital signs are stable. Anticipate discharge back to the [facility] where the patient resides possibly today or tomorrow. Follow-up with Dr. Cassidy in the office in 7-10 days I performed a history & physical examination of the patient and discussed their management with my nurse practitioner, Chen Galo. I reviewed the nurse practitioner's note and agree with the documented findings and plan of care. Lung sounds are clear. The findings and the impression was discussed with the patient. I attest to the documentation by the nurse practitioner. Time with Patient: Less than 30
--- NOTE | 2018-02-08 15:35 | PN ---
PROGRESS NOTE DATE OF SERVICE: 02/08/2018 REASON FOR FOLLOWUP: Recurrent urinary tract infection. INTERVAL HISTORY: The patient is afebrile. She is currently breathing comfortably. Denies having any chest pain, shortness of breath or cough. No abdominal pain or any diarrhea. PHYSICAL EXAMINATION: Blood pressure is 123/75 with a pulse of 60, temperature 99. She is 95% on room air. General description is an elderly female, lying in bed, in no distress. RESPIRATORY SYSTEM: Unlabored breathing, clear to auscultation anteriorly. HEART: S1, S2. Regular rate and rhythm. ABDOMEN: Soft, no tenderness. LABS: Hemoglobin is 10.8, white count 6.9. Urine with budding yeast. Blood cultures have been negative so far. DIAGNOSTIC IMPRESSION AND PLAN: Patient with recurrent UTI, failing outpatient therapy, culture here now showing budding yeast. Will go short course of oral Diflucan, was explained to the daughter on the phone who is an RN as well as with the nurse practitioner for the primary team. Methods to prevent recurrent UTI in this postmenopausal female may include interval use of estrogen cream which can be tried in the outpatient setting in addition to increasing fluid intake, personal hygiene and cranberry juice. She is not a good candidate for a suppressive antibiotic therapy because of her multiple antibiotic allergies. MMODL / IJN: [id number] /
--- NOTE | 2018-02-08 15:40 | P.DS ---
Providers Date of admission: 02/03/18 16:21 Expected date of discharge: 02/08/18 Attending physician: Nica Burton Consults: 02/03/18 16:21 Consult Physician Routine Consulting Provider: Jack Xie Consult Reason/Comments: known Do you want consulting provider notified?: Yes 02/04/18 11:14 Consult Physician Routine Consulting Provider: Gabbi Spenec Consult Reason/Comments: UTI Do you want consulting provider notified?: Already Contacted Primary care physician: Jack Xie Hospital Course: Discharge diagnosis 1. Altered mental status changes likely metabolic encephalopathy due to her UTI. 2. Acute urinary tract infection: Urine cultures remain negative. Urinalysis did show evidence of yeast. Infectious disease place patient on Diflucan. Case discussed with infectious disease the recommending Diflucan for milligrams by mouth daily 5 more days 3. Acute on chronic kidney disease, stage III: Improved with IV fluids 4. History of chronic right ureter stricture with stent placement approximately 30 years ago, changed every 6 months by urology 5. History of bladder cancer several years ago status post tumor removal and BCG instilled 6. History of essential hypertension 7. History of chronic diarrhea treated with Imodium every other day 8. Dementia continue with Aricept Hospital course This is a 87-year-old female with a known history of dementia, recurrent UTI, bladder cancer, chronic kidney disease, atrial fibrillation, hyperlipidemia, kidney stones and hypertension. She also has a history of chronic right ureter stricture and has a stent placed initially 30 years ago at [place]. She follows with Dr. Frye for her recurrent nephrolithiasis and recurrent UTIs. She has a stent changed every 6 months or so. Patient is resident at the [facility]. Apparently a week ago patient will started having very foul smelling urine was placed on Keflex and also given a prescription for Diflucan by urology. But after treatment of the urinary tract infection patient continued to have symptoms. Again foul smelling urine started to have altered mental status very confused generalized weakness and decrease in appetite and decrease in activity. She had a temp of 100.4 on admission. And urinalysis was positive for UTI. She was placed on meropenem. Consult was placed for Dr. Yao for further antibiotic recommendations. Patient does have multiple ALLERGIES to antibiotics. She also has issues with chronic diarrhea and incontinence of both urine and stool likely contributing to her recurrent UTIs. Currently on Lomotil. Which she has been newly started and the daughter-in- law has reported improvement in patient's bowel movements. Patient is currently alert and orientated to her name only. She reports no pain. Denies any chest pain or shortness breath. Denies any nausea or vomiting. Patient had a Conroy catheter inserted in the ER yesterday apparently due to her issues with incontinence. Dr. Xie consulted because patient is known to him and he had been their PCP. Patient was placed on meropenem for a UTI. Seen by infectious disease due to her recurrent UTIs and multiple ALLERGIES. Initial urine tolerance her was negative. However patient did have another low-grade temp. A repeat urinalysis with culture was ordered. And the urinalysis showed evidence of yeast. Urine culture negative. Patient was given Diflucan. And infectious diseases recommending Diflucan for 5 more days. Patient also had a Conroy catheter inserted in the emergency room this was removed and she is urinating without evidence of urinary retention. Patient's mentation has improved she is back to baseline. And she'll be discharged back to [facility]. Patient is medically stable for discharge. Please refer to chart for any further details. I performed an examination of the patient and discussed their management with the physician Construction Engineer. I have reviewed the Physician Construction Engineer's notes and agree with the documented findings and plan of care Patient Condition at Discharge: Stable Plan - Discharge Summary Discharge Rx Participant: No New Discharge Prescriptions: New Fluconazole [Diflucan] 100 mg PO DAILY #5 tab Continue Citalopram Hydrobromide [CeleXA] 20 mg PO DAILY@0700 Diltiazem HCl [Diltiazem 24Hr ER] 120 mg PO DAILY@0700 Donepezil [Aricept] 5 mg PO DAILY@0700 Aspirin EC [Ecotrin Low Dose] 81 mg PO MOWEFR Loperamide [Imodium] 2 [facility] Discharge Medication List Citalopram Hydrobromide [CeleXA] 20 mg PO DAILY@0700 09/09/15 [History] Diltiazem HCl [Diltiazem 24Hr ER] 120 mg PO DAILY@0700 03/04/16 [History] Donepezil [Aricept] 5 mg PO DAILY@0700 06/04/16 [History] Aspirin EC [Ecotrin Low Dose] 81 mg PO MOWEFR 12/14/16 [History] Loperamide [Imodium] 2 mg PO SUTUTHSA 02/03/18 [History] Fluconazole [Diflucan] 100 mg PO DAILY #5 tab 02/08/18 [Rx] Follow up Appointment(s)/Referral(s): Jack Xie MD [Primary Care Provider] - 1 Week Activity/Diet/Wound Care/Special Instructions: [facility] - [phone] Diet: regular Activity: as tolerated Discharge Disposition: HOME WITH HOME HEALTH SERVICES
[2018-02-08 15:50] VITALS: BP 117/68; PULSE 70; TEMP 98
== END 2018-02-08 18:10 | disposition home health service (06) | DRG 689 ==
LOC: EC 12:18 → 5MS5E 16:21
PROVIDERS: ADMIT Internal Medicine; ATTEND Internal Medicine
DX: N39.0 Urinary tract infection, site not specified (principal); G93.41 Metabolic encephalopathy; N17.9 Acute kidney failure, unspecified; I48.91 Unspecified atrial fibrillation; J44.9 Chronic obstructive pulmonary disease, unspecified; F25.9 Schizoaffective disorder, unspecified; B37.41 Candidal cystitis and urethritis; L40.50 Arthropathic psoriasis, unspecified; J45.909 Unspecified asthma, uncomplicated; R15.9 Full incontinence of feces; F03.90 Unspecified dementia, unspecified severity, without behavioral disturbance, psychotic disturbance, mood disturbance, and anxiety; I12.9 Hypertensive chronic kidney disease with stage 1 through stage 4 chronic kidney disease, or unspecified chronic kidney disease; N18.3 Chronic kidney disease, stage 3 (moderate); Z87.442 Personal history of urinary calculi; Z96.0 Presence of urogenital implants; N13.5 Crossing vessel and stricture of ureter without hydronephrosis; Z85.51 Personal history of malignant neoplasm of bladder; K52.9 Noninfective gastroenteritis and colitis, unspecified; E78.5 Hyperlipidemia, unspecified; H40.9 Unspecified glaucoma; R32 Unspecified urinary incontinence; Z79.899 Other long term (current) drug therapy; Z80.0 Family history of malignant neoplasm of digestive organs; Z82.3 Family history of stroke; Z87.440 Personal history of urinary (tract) infections; Z88.1 Allergy status to other antibiotic agents; Z88.5 Allergy status to narcotic agent; Z88.8 Allergy status to other drugs, medicaments and biological substances; Z91.040 Latex allergy status; Z91.013 Allergy to seafood; F31.9 Bipolar disorder, unspecified
CPT/HCPCS: 36415; 71046; 80053; 81001; 82550; 82553; 83735; 84100; 84484; 85025; 87040; 87086; 93005; 96365; 99285